=== PATIENT | female | born 1955 | race Caucasian/White ===

== ENCOUNTER 2021-02-23 12:15 | Outpatient (REF) | payer MEDICARE, SELFPAY ==
[2021-02-23 12:50] LABS: COVID-19 Test Negative (Negative)
== END 2021-02-23 12:16 | disposition home or self-care (01) ==
LOC: HO.LAB 12:15
PROVIDERS: Visit Provider Internal Medicine
DX: Z20.822 Contact with and (suspected) exposure to COVID-19 (principal)
CPT/HCPCS: 36415; 87635; C9803

== ENCOUNTER 2021-06-07 07:01 | Outpatient (REF) | payer MEDICARE, SELFPAY ==
[2021-06-07 11:30] LABS: Cholesterol 146 mg/dL; HDL Cholesterol 55 mg/dL; LDL Cholesterol Calculated 72 mg/dl; Triglycerides 98 mg/dL
== END 2021-06-07 07:02 | disposition home or self-care (01) ==
LOC: HO.HMGCLDS 07:01
PROVIDERS: PCP Internal Medicine; Visit Provider Internal Medicine Cardiovascular Disease
DX: E78.5 Hyperlipidemia, unspecified (principal)
CPT/HCPCS: 36415; 80061

== ENCOUNTER 2021-06-08 07:09 | Outpatient (REF) | payer MEDICARE, SELFPAY ==
--- NOTE | ~2021-06-08 | CT_ITS ---
EXAMINATION: CT CHEST WITHOUT CONTRAST CLINICAL INFORMATION: Pulmonary nodule COMPARISON: Previous CT scans most recent May 2020 TECHNIQUE: Multidetector volumetric CT imaging of the chest was done. Axial MIP volume rendering provided. Sagittal and coronal reformatted images were obtained. This CT examination was performed using dose optimization techniques as appropriate, variously including the following: *Automated exposure control *Adjustment of mA and/or kV according to patient size (this includes techniques or standardized protocols for targeted exams where dose is matched to indication/reason for exam; i.e. extremities or head) *Use of iterative reconstruction technique DLP: 116 mGy-cm FINDINGS: LUNGS: There is evidence of emphysema. There is mild biapical pleural parenchymal scarring. The small pulmonary nodules are stable. Largest pulmonary nodules are a 4 mm peripheral or subpleural left lower lobe nodule axial image 268 series 5 and 4 mm central right upper lobe nodule axial image 188 series 5. No new pulmonary nodule is seen. MEDIASTINUM: There is coronary artery calcification. Mediastinum is otherwise normal. PLEURA: There is no pleural effusion. No pleural mass or thickening. AXILLA: No lymphadenopathy. UPPER ABDOMEN: Unremarkable. OSSEOUS STRUCTURES: There are mild degenerative changes of the spine. CT/CT chest wo con IMPRESSION: Mild emphysema. Stable small pulmonary nodules.
== END 2021-06-08 07:10 | disposition home or self-care (01) ==
LOC: HO.CT 07:09
PROVIDERS: PCP Internal Medicine; Visit Provider Surgery
DX: R91.1 Solitary pulmonary nodule (principal)
CPT/HCPCS: 71250

== ENCOUNTER → 2021-06-30 09:00 | Outpatient (BNVA) | payer MEDICARE, SELFPAY | PROVIDERS: PCP Internal Medicine; Visit Provider Surgery | DX: R91.8 Other nonspecific abnormal finding of lung field (principal); Z79.899 Other long term (current) drug therapy; Z87.891 Personal history of nicotine dependence | CPT/HCPCS: 99212 ==

== ENCOUNTER → 2021-07-11 13:30 | Outpatient (BNVA) | payer MEDICARE, SELFPAY | PROVIDERS: PCP Internal Medicine; Referring Provider Internal Medicine; Visit Provider Internal Medicine Cardiovascular Disease | DX: I65.29 Occlusion and stenosis of unspecified carotid artery (principal); E78.5 Hyperlipidemia, unspecified | CPT/HCPCS: 93005; 99212 ==

== ENCOUNTER 2021-08-09 10:02 | Outpatient (REF) | payer MEDICARE, SELFPAY | END 2021-08-09 10:03 | disposition home or self-care (01) | LOC: HO.LAB 10:02 | PROVIDERS: PCP Internal Medicine; Visit Provider Internal Medicine | DX: Z20.822 Contact with and (suspected) exposure to COVID-19 (principal) | CPT/HCPCS: C9803; U0003; U0005 ==

== ENCOUNTER 2021-09-21 11:08 | Outpatient (REF) | payer MEDICARE, SELFPAY ==
[2021-09-21 12:01] LABS: COVID-19 Test Negative (Negative)
== END 2021-09-21 11:09 | disposition home or self-care (01) ==
LOC: HO.LAB 11:08
PROVIDERS: Visit Provider Internal Medicine
DX: Z20.822 Contact with and (suspected) exposure to COVID-19 (principal)
CPT/HCPCS: 36415; 87635; C9803

== ENCOUNTER 2022-01-15 14:30 | Outpatient (REF) | payer MEDICARE, SELFPAY | END 2022-01-15 14:31 | disposition home or self-care (01) | LOC: HO.LNP 14:30 | PROVIDERS: Visit Provider Physician Assistant | DX: L98.9 Disorder of the skin and subcutaneous tissue, unspecified (principal); L03.90 Cellulitis, unspecified | CPT/HCPCS: 87071; 87077; 87147; 87186; 87205 ==

== ENCOUNTER 2022-03-21 06:29 | Outpatient (REF) | payer MEDICARE, SELFPAY ==
[2022-03-21 11:40] LABS: MANUAL DIFF FLAG NO
[2022-03-21 11:46] LABS: Basophils Percent Auto 0.5 % (0-2); Eosinophils Absolute Auto 0.2 X10*3/uL (0.0-0.4); Eosinophils Percent Auto 2.8 % (0-4); Hemoglobin 13.7 g/dl (12.0-16.0); Imm Gran Abs Auto 0.01 X10*3/uL (0.00-0.03); Imm Gran Pct Auto 0.1 % (0.0-0.4); Lymphocytes Absolute Auto 2.2 X10*3/uL (1.2-4.9); Lymphocytes Percent Auto 27.2 % (20-40); Mean Corpuscular HGB Conc 31.1 g/dl (31.0-35.0); Mean Corpuscular Hemoglobin 27.4 pg (27.0-33.0); Mean Platelet Volume 10.8 fL (9.4-12.3); Monocytes Absolute Auto 0.9 X10*3/uL (0.1-1.2); Monocytes Percent Auto 11.4 % (2-11); Neutrophils Absolute Auto 4.6 x10*3/uL (2.0-8.3); Platelet Count 315 X10*3/uL (160-400); Red Cell Distribution Width 14.3 % (11.0-16.0)
[2022-03-21 12:17] LABS: Vitamin D 25-OH Total 30.7 ng/mL (>30)
[2022-03-21 12:28] LABS: Alanine Aminotransferase 56 U/L (0-31); Anion Gap 13 (12-20); Aspartate Amino Transferase 34 U/L (5-31); Blood Urea Nitrogen 15 mg/dL (9-16); C Reactive Protein 0.21 mg/dL (< or = 0.50); Calcium 9.4 mg/dL (8.4-10.2); Carbon Dioxide 25 mmol/L (22-29); Chloride 106 mmol/L (96-108); Cholesterol 168 mg/dL; Estimated Glomerular Filt Rate > 60; Glucose Fasting 103 mg/dL (60-99); HDL Cholesterol 53 mg/dL; LDL Cholesterol Calculated 77 mg/dl; Potassium 4.3 mmol/L (3.3-5.1); Sodium 140 mmol/L (135-145); Triglycerides 190 mg/dL
[2022-03-21 12:34] LABS: Erythrocyte Sedimentation Rate 19 MM/HR (0-20)
[2022-03-21 12:44] LABS: Rheumatoid Factor < 15.0 IU/mL (<15.0)
[2022-03-23 15:01] LABS: Anti Nuclear Antibody Screen NEGATIVE (NEGATIVE)
== END 2022-03-21 06:30 | disposition home or self-care (01) ==
LOC: HO.HMGCLDS 06:29
PROVIDERS: PCP Internal Medicine; Visit Provider Internal Medicine
DX: E78.5 Hyperlipidemia, unspecified (principal); I65.29 Occlusion and stenosis of unspecified carotid artery; M81.0 Age-related osteoporosis without current pathological fracture; R21 Rash and other nonspecific skin eruption
CPT/HCPCS: 36415; 80048; 80061; 82306; 84450; 84460; 85025; 85652; 86038; 86039; 86140; 86431

== ENCOUNTER 2023-07-17 07:27 | Outpatient (REF) | payer MEDICARE, SELFPAY ==
[2023-07-17 12:41] LABS: Alanine Aminotransferase 42 U/L (0-31); Albumin Level 4.1 g/dL (3.5-5.0); Alkaline Phosphatase 65 U/L (39-117); Anion Gap 14 (12-20); Aspartate Amino Transferase 37 U/L (5-31); Bilirubin Total 0.4 mg/dL (0.0-1.0); Blood Urea Nitrogen 14 mg/dL (9-16); Calcium 9.5 mg/dL (8.4-10.2); Carbon Dioxide 26 mmol/L (22-29); Chloride 107 mmol/L (96-108); Cholesterol 131 mg/dL (<200); Estimated Glomerular Filt Rate > 60; Glucose Fasting 108 mg/dL (60-99); HDL Cholesterol 44 mg/dL (>40); LDL Cholesterol Calculated 68 mg/dL (<100); Potassium 4.2 mmol/L (3.3-5.1); Sodium 143 mmol/L (135-145); Total Protein 7.2 g/dL (6.5-8.0); Triglycerides 97 mg/dL (<150)
[2023-07-17 13:03] LABS: Vitamin D 25-OH Total 51.6 ng/mL (>30)
== END 2023-07-17 07:28 | disposition home or self-care (01) ==
LOC: HO.HMGCLDS 07:27
PROVIDERS: PCP Internal Medicine; Visit Provider Internal Medicine
DX: I65.29 Occlusion and stenosis of unspecified carotid artery (principal); M81.0 Age-related osteoporosis without current pathological fracture; R73.01 Impaired fasting glucose; E78.5 Hyperlipidemia, unspecified
CPT/HCPCS: 36415; 80053; 80061; 82306

== ENCOUNTER 2023-07-19 10:41 | Outpatient (AMB) | payer MEDICARE, SELFPAY ==
--- NOTE | 2023-07-19 10:42 | MHC.OFFWIV ---
Intake Intake Visit Reasons: 6 month Follow up Hyperlipidemia Patient Tobacco Use Status: Former Tobacco user Quit Date: 1997 Allergies No Known Allergies [No Known Allergies*] Allergy (Verified 01/14/23 10:28) [facility] Medical History (Updated 06/26/23 @ 22:52 by Alysa Shane MD) Impaired fasting glucose Encounter for annual wellness visit (AWV) in Medicare patient Osteoporosis Hyperlipidemia Mild atherosclerosis of carotid artery Former smoker, stopped smoking in distant past Osteopenia (~2008) Pulmonary nodules Tubular adenoma of colon (~2004) Surgical History History of cataract surgery (~2018) History of endoscopy (~2018) History of colonoscopy (~2018) Family History Sister Substance use disorder Sister Substance use disorder Other Mental health disorder Social History Housing: House Alcohol intake: current Alcohol intake frequency: a few times a week Patient Tobacco Use Status: Former Tobacco user Quit Date: 1997 Years Smoked: 29 (onset 14, 2ppd x 29yrs, 50pyh, quit 1997) e-Cigarette/Vaping Use: Never Used Second Hand Smoke Exposure: No service: No Current occupational status: employed 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
--- NOTE | 2023-07-19 10:44 | A.OFFPC_ITS ---
Vital Signs 07/19/23 10:51 Height 5 ft 5 in Weight 170 lb BMI 28.3 BP 138/88 Blood Pressure Location Rt brachial Position Sitting Pulse 73 Pulse Source Pulse Oximeter Pulse Oximetry (%) 94 Oxygen Delivery Method Room Air Intake Visit Reasons: 6 month Follow up Hyperlipidemia Intake Note: pt is here for 6 month f/u hyperlipidemia Allergies No Known Allergies [No Known Allergies*] Allergy (Verified 07/19/23 11:08) Medication List - Last Reconciled 07/19/23 by Alysa Shane MD aspirin (Adult Aspirin Regimen) 81 mg PO DAILY atorvastatin 80 mg PO BEDTIME cholecalciferol (vitamin D3) 25 mcg PO DAILY coenzyme Q10 (Ultra CoQ10) 75 mg PO DAILY ezetimibe 10 mg PO DAILY ezetimibe (Zetia) 10 mg PO DAILY ibuprofen 800 mg PO Q12H PRN meloxicam 15 mg PO DAILY mometasone 0.1% 0 appl topical Tobacco use date assessed: 07/19/23 Fall risk assessment: No Falls in past year Last assessed Fall Risk: 07/19/23 Dental Screening Dental Screen Date: 07/19/23 Did you have a dental visit in the last 12 months?: Yes Did you have a dental problem in the last 6 months where you did not have access to dental care?: Yes Was dental information given to patient?: Patient has dentist HPI 6 month Follow up Hyperlipidemia HPI Details 68-year-old lady with osteoporosis, pred iabetes, and left carotid stenosis, here today for follow-up on her lipids, currently taking atorvastatin and ezetimibe. She has been feeling well, with no new complaints at present time. Her bone density scan done last year showed presence of osteoporosis in her lumbar spine, unchanged from previous. Test. She has been taking vitamin-D 3 supplements and takes calcium from dietary sources. Has not had any fractures. [facility] Medical History (Updated 07/22/23 @ 03:26 by Alysa Shane MD) Impaired fasting glucose Encounter for annual wellness visit (AWV) in Medicare patient Osteoporosis Hyperlipidemia Mild atherosclerosis of carotid artery Former smoker, stopped smoking in distant past Osteopenia (~2008) Pulmonary nodules Tubular adenoma of colon (~2004) Surgical History History of cataract surgery (~2019) History of endoscopy (~2019) History of colonoscopy (~2019) Family History Sister Substance use disorder Sister Substance use disorder Other Mental health disorder Social History Housing: House Alcohol intake: current Alcohol intake frequency: a few times a week Patient Tobacco Use Status: Former Tobacco user Quit Date: 1997 Years Smoked: 29 (onset 14, 2ppd x 29yrs, 50pyh, quit 1997) e-Cigarette/Vaping Use: Never Used Second Hand Smoke Exposure: No service: No 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 occupational status: employed 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 needs: No Hearing needs: No Vision needs: No Questionnaire Thrive Questionnaire Date Thrive assessed: 07/19/23 I am a: Patient What is your living situation today?: I have a steady place to live Within the past 12 months, did the food you bought not last and you didn't have the money to get more?: Never true Within the past 12 months, did you worry whether your food would run out before you got money to buy more?: Never true Do you have trouble paying for medicines?: No Do you have trouble getting transportation to medical appointments?: No Do you have trouble paying your heating and electricity bill?: No Do you have trouble taking care of your child, family member or friend?: No Do you have trouble with day-to-day activities such as bathing, preparing meals, shopping, managing finances, etc.?: No Are you currently unemployed and looking for a job?: No Are you interested in more education?: No Please select the resources that you would like help with: None Currently or been in a relationship where the following occur: no concerns reported Review of Systems Const Denies chills, Denies fever(s), Denies malaise and Denies weakness Eyes Reports blurry vision (Sees [facility] in [place]) ENT Reports no additional complaints and Denies dizziness Card Denies chest pain, Denies rapid heart rate, Denies irregular heart rhythm and Denies lightheadedness Resp Reports no additional complaints GI Reports no additional complaints Reports no additional complaints Musc Details: [facility] Reports arthralgias and Denies joint swelling Neuro Reports no additional complaints, Denies dizziness and Denies weakness Endo Reports no additional complaints David/Lymph Denies easy bleeding and Denies easy bruising Physical exam (Primary Care) Vital Signs: Last Vital Signs Pulse 73 07/19/23 10:51 BP 138/88 07/19/23 10:51 Pulse Ox 94 07/19/23 10:51 Oxygen Delivery Method Room Air 07/19/23 10:51 BMI result Body Mass Index 28.3 Tobacco/Smoking Status: Tobacco use Status Tobacco use date assessed 07/19/23 07/19/23 10:55 Patient Tobacco Use Status Former Tobacco user 07/19/23 10:55 e-Cigarette/Vaping Use Never Used 07/19/23 10:55 Thrive Assessment: Date of Thrive Assessment Date Thrive assessed 07/19/23 07/19/23 10:57 Currently or been in a relationship where the following occur: no concerns reported Const Other: Alert oriented x3, biztalk architect present General: comfortable and no acute distress Nutritional Appearance: overweight Orientation/consciousness: patient oriented x3 HENMT Head: Yes normocephalic and Yes atraumatic General nose exam: Normal external nose present Face and sinus: Yes face symmetric Mouth: Normal oral and palatal mucosa present and moist mucous membranes Neck Neck: Yes full ROM, Yes no lymphadenopathy and Yes supple Carotids: bruit (left) Resp Effort & Inspection: normal respiratory effort and able to speak in complete sentences Auscultation: clear to auscultation bilaterally Cardio Rate: regular rate Rhythm: regular rhythm Heart sounds: S1 normal heart sound present and S2 normal heart sound present GI Inspection: Yes normal to inspection Palpation (GI): Soft to palpation, nontender, no guarding and no masses General: Yes no CVA tenderness Back/Spine/Pelvis Back: no CVA tenderness and No back tenderness Skin Lesions: no lesions Rashes: no rashes Neuro General: patient oriented x3, moves all extremities, Normal light touch and pain sensation, no focal motor deficits and CN's II-XI intact bilaterally Results Reviewed Results Reviewed: ENTERED: 07/17/23-746 OTHR SHIPMAN: ORDERED: CMP Fast, Lipid Panel, Vitamin D 25-OH Test Result Flag Reference Site Sodium 143 135-145 mmol/L Potassium 4.2 3.3-5.1 mmol/L CL 107 96-108 mmol/L CO2 26 22-29 mmol/L Gap 14 12-20 BUN 14 9-16 mg/dL Creat 0.68 0.5-1.4 mg/dL EGFR > 60 NOTE: For -[place]aman[place] individuals, multiply the result by 1.210. Chronic Kidney Disease: Estimated GFR < 60 mL/min/1.73m2 Severe Kidney Disease: Estimated GFR < 15 mL/min/1.73m2 FBS 108 H 60-99 mg/dL A fasting glucose from 100-125 mg/dl is considered impaired (pre-diabetes). CA 9.5 8.4-10.2 mg/dL Total Bili 0.4 0.0-1.0 mg/dL AST (GOT) 37 H 5-31 U/L ALT (GPT) 42 H 0-31 U/L Protein, Total 7.2 6.5-8.0 g/dL Alb 4.1 3.5-5.0 g/dL Triglyceride 97 <150 mg/dL Desirable Triglyceride: less than 150 mg/dL Borderline High Triglyceride 150-199 mg/dL High Triglyceride: 200-499 mg/dL Very High Triglyceride: greater than or equal to 5OO mg/dL Cholesterol 131 <200 mg/dL Desirable Cholesterol: less than 200 mg/dL Borderline High Cholesterol: 200-239 mg/dL High Cholesterol: greater than 239 mg/dL LDL Calculated 68 <100 mg/dL Desirable LDL: less than 100 mg/dL Near Optimal/Above Optimal LDL: 110-129 mg/dL Borderline High LDL: 130-159 mg/dL High LDL: 160-189 mg/dL Very High LDL: greater than or equal to 190 mg/dL HDL 44 >40 mg/dL Desirable HDL: greater than 40 mg/dL Note: This HDL assay may give artificially low results in patients with liver disease. Alk Phos 65 39-117 U/L Vit D 25-OH Tot 51.6 >30 ng/mL Health Based Reference Values* < 20 ng/mL Deficient 20-30 ng/mL Insufficient > 30 ng/mL Sufficient Assessment and Plan Assessment & Plan (1) Impaired fasting glucose: Code(s): R73.01 - Impaired fasting glucose Plan: Your fasting blood sugars elevated above 100 mg/dL. Impaired glucose metabolism O2 at risk for developing diabetes mellitus type 2, as well as heart attack and stroke later on. Lifestyle changes at just weight loss, healthy eating habits, and regular exercise are important, and can prevent the progression to diabetes (2) Hyperlipidemia: Code(s): E78.5 - Hyperlipidemia, unspecified Plan: Reviewed recent fasting lipid profile with patient with levels within normal limits . Continue with atorvastatin and ezetimibe , in addition to adherence to low-cholesterol diet and regular exercise, at least 30 minutes 3 to 4 times a week. Advised patient to make healthy food choices, eat more fruits, vegetables, whole grains, wild caught fish and low-fat dairy. Limit amount of meat and fried or fatty food products, as well as processed foods and fast foods. Follow-up scheduled with repeat fasting lipid panel in 6 months. (3) Osteoporosis: Code(s): M81.0 - Age-related osteoporosis without current pathological fracture Plan: Reviewed last bone density scan with patient and daughter, which showed presence of osteoporosis in lumbar spine, with no significant change from previous test done. Discuss treatment options with patient which may include alendronate, Prolia, raloxifene, would like to discuss this more with her arthritis specialist and decide which course of treatment to take (4) Mild atherosclerosis of carotid artery: Code(s): I65.29 - Occlusion and stenosis of unspecified carotid artery Qualifiers: Laterality: left Qualified Code(s): I65.22 - Occlusion and stenosis of left carotid artery Plan: Continue aspirin 81 mg daily, stressed importance of getting cholesterol, serum glucose and blood pressure well controlled. Has an appointment for follow-up with Dr. Gill next week Orders: Orders Lipid Panel 01/10/24 E78.5 - Hyperlipidemia, unspecified, I65.29 - Occlusion and stenosis of unspecified carotid artery, M81.0 - Age-related osteoporosis without current pathological fracture, R73.01 - Impaired fasting glucose Glucose Fasting 01/10/24 E78.5 - Hyperlipidemia, unspecified, I65.29 - Occlusion and stenosis of unspecified carotid artery, M81.0 - Age-related osteoporosis without current pathological fracture, R73.01 - Impaired fasting glucose Aspartate Amino Transferase 01/10/24 E78.5 - Hyperlipidemia, unspecified, I65.29 - Occlusion and stenosis of unspecified carotid artery, M81.0 - Age-related osteoporosis without current pathological fracture, R73.01 - Impaired fasting glucose Alanine Aminotransferase 01/10/24 E78.5 - Hyperlipidemia, unspecified, I65.29 - Occlusion and stenosis of unspecified carotid artery, M81.0 - Age-related osteoporosis without current pathological fracture, R73.01 - Impaired fasting glucose Hemoglobin A1c 01/10/24 E78.5 - Hyperlipidemia, unspecified, I65.29 - Occlusion and stenosis of unspecified carotid artery, M81.0 - Age-related osteoporosis without current pathological fracture, R73.01 - Impaired fasting glucose Vitamin D 25-OH Total 01/10/24 E78.5 - Hyperlipidemia, unspecified, I65.29 - Occlusion and stenosis of unspecified carotid artery, M81.0 - Age-related osteoporosis without current pathological fracture, R73.01 - Impaired fasting glucose Coding Level of Care Code Est Pt Level 4 (33443) Diagnoses Impaired fasting glucose R73.01 Hyperlipidemia E78.5 Osteoporosis M81.0 Mild atherosclerosis of left carotid artery I65.22 Laterality: left
[2023-07-19 10:51] VITALS: BP 138/88; PULSE 73; O2SAT 94; BMI 28.3
== END 2023-07-19 11:35 | disposition home or self-care (01) ==
PROVIDERS: Visit Provider Internal Medicine
DX: R73.01 Impaired fasting glucose (principal); E78.5 Hyperlipidemia, unspecified; M81.0 Age-related osteoporosis without current pathological fracture; I65.22 Occlusion and stenosis of left carotid artery
CPT/HCPCS: 99214

== ENCOUNTER 2023-07-22 13:05 | Outpatient (AMB) | payer MEDICARE, SELFPAY ==
--- NOTE | 2023-07-22 13:10 | MHC.OFFVIS ---
Intake Vital Signs 07/22/23 13:11 Height 5 ft 5 in Weight 167 lb 8.821 oz BMI 27.9 BP 120/80 Blood Pressure Location Lt brachial Position Sitting Pulse 93 Intake Visit Reasons: 2 year follow up Intake Note: 2 year follow-up with ekg feeling good Allergies No Known Allergies [No Known Allergies*] Allergy (Verified 07/19/23 11:08) Medication List - Last Reconciled 07/22/23 by Rock Gill MD aspirin (Adult Aspirin Regimen) 81 mg PO DAILY atorvastatin 80 mg PO BEDTIME cholecalciferol (vitamin D3) 25 mcg PO DAILY coenzyme Q10 (Ultra CoQ10) 75 mg PO DAILY ezetimibe 10 mg PO DAILY ezetimibe (Zetia) 10 mg PO DAILY meloxicam 15 mg PO DAILY mometasone 0.1% 0 appl topical HPI HPI Comments History of Present Illness Details Gabriella comes for follow-up. When she is out in the mid whether she notices some shortness of breath. She denies any wheezing. She also occasionally notice shortness of breath when she is bending over to tie her shoelaces. She denies any orthopnea, PND, leg edema. Denies any exertional chest pain. No lightheadedness, syncope. No neurologic symptoms. Takes all her medications. Last LDL was well optimized at 68. She says that she has gained some weight. [facility] Medical History Impaired fasting glucose Encounter for annual wellness visit (AWV) in Medicare patient Osteoporosis Hyperlipidemia Mild atherosclerosis of carotid artery Former smoker, stopped smoking in distant past Osteopenia (~2008) Pulmonary nodules Tubular adenoma of colon (~2004) Surgical History History of cataract surgery (~2018) History of endoscopy (~2018) History of colonoscopy (~2018) Family History Sister Substance use disorder Sister Substance use disorder Other Mental health disorder Social History Housing: House Alcohol intake: current Alcohol intake frequency: a few times a week Patient Tobacco Use Status: Former Tobacco user Quit Date: 1997 Years Smoked: 29 (onset 14, 2ppd x 29yrs, 50pyh, quit 1997) e-Cigarette/Vaping Use: Never Used Second Hand Smoke Exposure: No service: No 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 occupational status: employed 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 needs: No Hearing needs: No Vision needs: No Review of Systems Const Denies chills, Denies fatigue, Denies fever(s), Denies frequent falls, Denies weakness, Denies weight gain and Denies weight loss ENT Denies dizziness Card Denies chest pain, Denies leg edema, Denies lightheadedness, Denies palpitations, Denies dyspnea, Denies dyspnea on exertion, Denies orthopnea and Denies other (loss of consciousness) Resp Denies cough, Denies dyspnea and Denies dyspnea on exertion GI Denies hematochezia and Denies change in stool character Musc Denies abnormal gait, Denies muscle weakness, Denies numbness, Denies radiating pain into limb and Denies tingling Neuro Denies abnormal gait, Denies dizziness, Denies frequent falls, Denies numbness, Denies tingling and Denies weakness Endo Denies fatigue and Denies palpitations Physical Exam Vital Signs: Last Vital Signs Pulse 93 07/22/23 13:11 BP 120/80 07/22/23 13:11 BMI result Body Mass Index 27.9 Const General: cooperative, comfortable, no acute distress, alert and awake Nutritional Appearance: average body habitus Orientation/consciousness: patient oriented x3 Limitations: no limitations Neck Neck: Yes trachea midline, Yes supple and Yes no JVD Carotids: bruit on the left Resp Effort & Inspection: normal respiratory effort Auscultation: clear to auscultation bilaterally Cardio Jugular venous distension: no JVD Palpation: normal PMI Rate: regular rate Rhythm: regular rhythm Heart sounds: S1 normal heart sound present, S2 normal heart sound present, no click, no gallops, no murmurs and no rubs Bruits: carotid bruit on the left GI Auscultation: normal bowel sounds Skin General skin exam: no rashes or lesions noted Neuro General: patient oriented x3 and no focal motor deficits Extrem General: Yes no clubbing, cyanosis or edema Office Procedures EKG Details: EKG shows normal sinus rhythm with normal EKG [id number], Complete Assessment & Plan Assessment & Plan (1) Mild atherosclerosis of carotid artery: Code(s): I65.29 - Occlusion and stenosis of unspecified carotid artery Qualifiers: Laterality: left Qualified Code(s): I65.22 - Occlusion and stenosis of left carotid artery Plan: Patient with risk factors of mild carotid disease and hyperlipidemia with family history. He has prior history of smoking which is currently not doing. Continue low-dose aspirin therapy. Continue high-intensity statin therapy with target goal LDL less than 70 mg/dL. Her recent increase in symptoms shortness of breath especially with weather is most suggestive of pulmonary parenchymal disease and have recommended PFTs if she continues to have symptoms. This will be pursue through office. Also advised to participate in weight loss program and regular physical activity. Blood pressure is currently well optimized. Noted mild abnormality in LFTs most likely due to fatty liver disease due to weight gain. Advised weight loss program. Follow up in the clinic in 2 years time, sooner p.r.n.. Thank you for allowing me to partake in her care Coding Level of Care Code Est Pt Level 3 (09393) Diagnoses Mild atherosclerosis of left carotid artery I65.22 Laterality: left CPT Codes EKG - CPT: 10464-[id number], Complete ([id number])
[2023-07-22 13:11] VITALS: BP 120/80; PULSE 93; BMI 27.9
== END 2023-07-22 13:46 | disposition home or self-care (01) ==
PROVIDERS: PCP Internal Medicine; Referring Provider Internal Medicine; Visit Provider Internal Medicine Cardiovascular Disease
DX: I65.22 Occlusion and stenosis of left carotid artery (principal)
CPT/HCPCS: 93010; 99213

== ENCOUNTER → 2023-07-22 13:05 | Outpatient (BNVA) | payer MEDICARE, SELFPAY | PROVIDERS: PCP Internal Medicine; Referring Provider Internal Medicine; Visit Provider Internal Medicine Cardiovascular Disease | DX: I65.22 Occlusion and stenosis of left carotid artery (principal); E78.5 Hyperlipidemia, unspecified; Z79.82 Long term (current) use of aspirin; Z79.899 Other long term (current) drug therapy | CPT/HCPCS: 93005; 99212 ==

== ENCOUNTER 2024-01-16 08:25 | Outpatient (AMB) | payer MEDICARE, SELFPAY ==
[2024-01-16 08:41] VITALS: BP 140/80; PULSE 71; O2SAT 95; BMI 28.3
--- NOTE | 2024-01-16 08:41 | AM.OFFVISMDC ---
Intake Vital Signs 01/16/24 08:41 Height 5 ft 5 in Weight 170 lb BMI 28.3 BP 140/80 H Blood Pressure Location Rt brachial Position Sitting Pulse 71 Pulse Source Pulse Oximeter Pulse Oximetry (%) 95 Oxygen Delivery Method Room Air Intake Visit Reasons: SWV G0439 Intake Note: ? Allergies No Known Allergies [No Known Allergies*] Allergy (Verified 01/16/24 08:58) Medication List - Last Reconciled 01/16/24 by Alysa Shane MD aspirin (Adult Aspirin Regimen) 81 mg PO DAILY atorvastatin 80 mg PO BEDTIME cholecalciferol (vitamin D3) 25 mcg PO DAILY coenzyme Q10 (Ultra CoQ10) 75 mg PO DAILY ezetimibe 10 mg PO DAILY meloxicam 15 mg PO DAILY mometasone 0.1% 0 appl topical HPI SWV G0439 HPI Details SWV ? 68 year old lady, here today for her subsequent annual wellness visit.? She is hyperlipidemia currently on pravastatin 80 mg daily and ezetimibe 10 mg daily, with last fasting lipid panel done 07/17/2023 within normal limits. She had a fasting glucose done same time which showed a fasting glucose in the prediabetic range at 108 mg/dL. She is up-to-date with her screening mammogram done at [facility] last 12/23/2023 with negative findings. Up-to-date with her screening colonoscopy done by Dr. Loredo 09/16/2019 with removal of a tubular adenoma, to be rechecked again this year, patient to schedule appointment with Dr. Loredo for follow-up. 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 Broussard at [facility]. She is up-to-date with her COVID vaccination including booster, flu shot, pneumonia vaccination, Shingrix and Tdap. ? Medical / Social History Reviewed? Past Medical History ?Yes . ? Crow of Care / Care Team list updated ?Yes . ? Surgical/Hospitalization History ?Yes . ? Current Medications (including OTC and supplements) ?Yes . ? Family History ?Yes . ? Tobacco Control form ?Yes . ? AUDIT-C (Alcohol use) form ?Yes . ? Illicit drug use in Social History ?Yes . ? Current diagnosis of depression? ?No ? Appropriate PHQ2/PHQ9 completed ?Yes . ? Data entered by ?Automobile Rental Clerk and reviewed by provider ? Fall Risk ? Fall History? Have you had any falls with injury in the past year? ?No . ? Have you had two or more falls in the past year? ?No . ? Fall Risk Assessment: ?No falls in the past year . ? HRA filled out by the patient, reviewed by Provider and scanned. ?? SWV ? Balance? Romberg ?Yes . ? Tandem walk ?Yes . ? Walk and Turn ?Yes . ? Rise from sit to stand ?Yes . ?Vision? Corrective lens ?Yes ? Vision screen -sees Dr. Hulseberg?Hearing? Whisper test ?pass . ?Written Plan?Completed. See Patient Documents.? [facility] Medical History Impaired fasting glucose Encounter for annual wellness visit (AWV) in Medicare patient Osteoporosis Hyperlipidemia Mild atherosclerosis of carotid artery Former smoker, stopped smoking in distant past Osteopenia (~2008) Pulmonary nodules Tubular adenoma of colon (~2004) Surgical History History of cataract surgery (~2018) History of endoscopy (~2018) History of colonoscopy (~2018) Family History Sister Substance use disorder Sister Substance use disorder Other Mental health disorder Social History Housing: House Alcohol intake: current Alcohol intake frequency: a few times a week Patient Tobacco Use Status: Former Tobacco user Quit Date: 1997 Years Smoked: 27 (onset 14, 2ppd x 29yrs, 50pyh, quit 1997) e-Cigarette/Vaping Use: Never Used Second Hand Smoke Exposure: No service: No Current occupational status: employed 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 needs: No Hearing needs: No Vision needs: No Questionnaire Medicare Wellness Checkup [age] What gender do you identify with?: female During the past 4 weeks, how much have you been bothered by emotional problems such as feeling anxious, depressed, irritable, sad or downhearted, and blue?: slightly During the past 4 weeks, has your physical & emotional health limited your social activities with family, friends, neighbors, or groups?: slightly During the past 4 weeks, how much bodily pain have you generally had?: mild pain During the past 4 weeks, was someone available to help you if you needed & wanted help?: yes, as much as I wanted During the past 4 weeks, what was the hardest physical activity you could do for at least 2 minutes?: moderate Can you get to places out of walking distance without help? (For eg., can you travel alone on buses, taxis or drive your car?): Yes Can you go shopping for groceries or clothes without someone's help?: Yes Can you prepare your own meals?: Yes Can you do your housework without help?: Yes Because of any health problems, do you need the help of another person with your personal care needs such as eating, bathing, dressing or getting around the house?: Yes Can you handle your own money without help?: Yes During the past 4 weeks, how would you rate your health in general?: good During the past 4 weeks how have things been going for you?: pretty well Are you having difficulties driving your car?: no Do you always fasten your seat belt when you are in a car?: yes, usually During past 4 weeks, have you been bothered by the following: never: Sexual problems?, Teeth or denture problems? and Problems using the telephone?, seldom: Falling or dizzy when standing up and Trouble eating well? and often: Tiredness or fatigue? Have you fallen 2 or more times in the past year?: No Are you afraid of falling?: Yes Are you a smoker?: no During the past 4 weeks, how many drinks of wine, beer, or other alcoholic beverages did you have?: 6-9 drinks per week Do you exercise for about 20 minutes 3 or more times a week?: no, I usually do not exercise this much Have you been given information to help with the following?: yes: Keeping track of your medications? and no: Hazards in your house that might hurt you? How often do you have trouble taking medicines the way you have been told to take them?: I always take medicine as prescribed How confident are you that you can control & manage most of your health problems?: very confident What is your race?: White Mini Mental State Exam (MMSE) Orientation What is the (year) (season) (date) (day) (month)?: year (2023), season (winter), date ([id number]), day () and month (january) Where are we (state) (county) (town or city) (hospital) (floor)?: state ([place]), county ([place]), town or city ([place]) and hospital/clinic ([facility] Score Score: 9 Activity of Daily Living Bathing - sponge bath, tub bath or shower: receives no assistance (gets in/out by self, if usual bathing means Dressing - getting clothes from closets & drawers, including inner/outer garments & fasteners.: gets clothes & gets completely dressed without help Toileting - going to the 'toilet room' for urine/bowel elimination & cleaning self/arranging clothes: goes to toilet room, cleans self, arranges clothes without help Transfer: moves in & out of bed and chair without help (may use support object) Continence: has occasional 'accidents' Feeding: feeds self without help Total Score: 0 Information obtained from: patient Using telephone: independent Traveling: independent Shopping: independent Preparing meals: independent Housework: independent Taking medicine: independent Managing money: independent PHQ-9 Over the last 2 weeks, how often have you been bothered by any of the following problems? 1. Little interest or pleasure in doing things: not at all 2. Feeling down, depressed, or hopeless: not at all 3. Trouble falling or staying asleep, or sleeping too much: not at all 4. Feeling tired or having little energy: several days 5. Poor appetite or overeating: not at all 6. Feeling bad about yourself - or that you are a failure or have let yourself or your family down: not at all 7. Trouble concentrating on things, such as reading the newspaper or watching television: not at all 8. Moving or speaking so slowly that other people could have noticed. Or the opposite - being so fidgety or restless that you have been moving around a lot more than usual: not at all 9. Thoughts that you would be better off or of hurting yourself in some way: not at all Total score: 1 Depression Screening Interpretation: Negative Depression Screening Done: Yes 72354 - PHQ-9 Billing: Yes Source: Developed by Drs. Boston Dan, Carole Flower, Tesfaye Krishnan and colleagues, with an educational fabio from [employer]. Physical Exam Vital Signs: Last Vital Signs Pulse 71 01/16/24 08:41 BP 140/80 H 01/16/24 08:41 Pulse Ox 95 01/16/24 08:41 Oxygen Delivery Method Room Air 01/16/24 08:41 BMI result Body Mass Index 28.3 Assessment & Plan Assessment & Plan (1) Encounter for subsequent annual wellness visit (AWV) in Medicare patient: Code(s): Z00.00 - Encounter for general adult medical examination without abnormal findings Plan: Medical wellness checklist discussed with patient reviewed and updated. Copy given. 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 , unsure whether she wants to start any treatment at this time as she feels well, has been exercising regularly takes adequate calcium from her diet and takes regular vitamin-D supplements with levels within normal limits (3) Impaired fasting glucose: Code(s): R73.01 - Impaired fasting glucose Plan: Reinforced importance of following a healthy diet, low in carbs, and get regular exercise to prevent progression to diabetes mellitus (4) Hyperlipidemia: Code(s): E78.5 - Hyperlipidemia, unspecified Qualifiers: Hyperlipidemia type: pure hypercholesterolemia Qualified Code(s): E78.00 - Pure hypercholesterolemia, unspecified Plan: Currently on atorvastatin 80 mg at diet and ezetimibe 10 mg daily (5) Mild atherosclerosis of carotid artery: Code(s): I65.29 - Occlusion and stenosis of unspecified carotid artery Qualifiers: Laterality: left Qualified Code(s): I65.22 - Occlusion and stenosis of left carotid artery Plan: Stressed importance of getting hypertension, cholesterol and diabetes well controlled Orders: Orders XR DEXA axial skeleton 01/16/24 M81.0 - Age-related osteoporosis without current pathological fracture Quality Reporting (2019) Depression/Bipolar (159/160/161/177) PHQ-9: Total score: 1 Coding Level of Care Code Medicare Subsequent (G0439) Diagnoses Encounter for subsequent annual wellness visit (AWV) in Medicare patient Z00.00 Age-related osteoporosis without current pathological fracture M81.0 Osteoporosis type: age-related Presence of current pathological fracture: without current pathological fracture Impaired fasting glucose R73.01 Pure hypercholesterolemia E78.00 Hyperlipidemia type: pure hypercholesterolemia Mild atherosclerosis of left carotid artery I65.22 Laterality: left CPT Codes Advance Care Planning - Advance Care Planning discussion: On file, no changes ([id number]) Advance Care Planning - Time spent: 1-15 minutes, on File ([id number]) Advance Care Planning Advance Care Planning discussion: On file, no changes Date of discussion: 01/16/24 Who was present: Patient Forms completed: Health Care Proxy and MOLST Time spent: 1-15 minutes, on File Actual minutes spent: 15
== END 2024-01-16 09:31 | disposition home or self-care (01) ==
PROVIDERS: Visit Provider Internal Medicine
DX: Z00.00 Encounter for general adult medical examination without abnormal findings (principal); M81.0 Age-related osteoporosis without current pathological fracture; R73.01 Impaired fasting glucose; E78.00 Pure hypercholesterolemia, unspecified; I65.22 Occlusion and stenosis of left carotid artery
CPT/HCPCS: 1123F; G0439

== ENCOUNTER 2024-03-09 08:18 | Outpatient (REF) | payer MEDICARE, SELFPAY ==
[2024-03-09 10:44] LABS: Estimated Average Glucose 123 mg/dL; Hemoglobin A1c % 5.9 % (<6.0)
[2024-03-09 11:49] LABS: Alanine Aminotransferase 54 U/L (0-31); Aspartate Amino Transferase 37 U/L (5-31); Cholesterol 132 mg/dL (<200); Glucose Fasting 106 mg/dL (60-99); HDL Cholesterol 49 mg/dL (>40); LDL Cholesterol Calculated 61 mg/dL (<100); Triglycerides 110 mg/dL (<150); Vitamin D 25-OH Total 42.3 ng/mL (>30)
== END 2024-03-09 08:19 | disposition home or self-care (01) ==
LOC: HO.HMGCLDS 08:18
PROVIDERS: PCP Internal Medicine; Visit Provider Internal Medicine
DX: R73.01 Impaired fasting glucose (principal); E78.5 Hyperlipidemia, unspecified; I65.29 Occlusion and stenosis of unspecified carotid artery; M81.0 Age-related osteoporosis without current pathological fracture
CPT/HCPCS: 36415; 80061; 82306; 82947; 83036; 84450; 84460

== ENCOUNTER 2024-08-05 11:38 | Outpatient (AMB) | payer MEDICARE, SELFPAY ==
--- NOTE | 2024-08-05 12:18 | A.OFFPC_ITS ---
Vital Signs 08/05/24 12:20 Height 5 ft 5 in Weight 175 lb 8 oz BMI 29.2 BP 162/86 H Blood Pressure Location Rt brachial Position Sitting Pulse 76 Pulse Source Pulse Oximeter Pulse Oximetry (%) 95 Oxygen Delivery Method Room Air Intake Visit Reasons: 6M F/U Allergies No Known Allergies [No Known Allergies*] Allergy (Verified 08/05/24 12:42) Medication List - Last Reconciled 08/05/24 by Alysa Shane MD aspirin (Adult Aspirin Regimen) 81 mg PO DAILY atorvastatin 80 mg PO BEDTIME cholecalciferol (vitamin D3) 25 mcg PO DAILY coenzyme Q10 (Ultra CoQ10) 75 mg PO DAILY ezetimibe 10 mg PO DAILY meloxicam 15 mg PO DAILY mometasone 0.1% 0 appl topical Tobacco use date assessed: 08/05/24 Fall risk assessment: No Falls in past year Last assessed Fall Risk: 08/05/24 Dental Screening Dental Screen Date: 08/05/24 Did you have a dental visit in the last 12 months?: Yes Did you have a dental problem in the last 6 months where you did not have access to dental care?: No Was dental information given to patient?: Patient has dentist HPI 6M F/U HPI Details 69-year-old lady with attention, hyperlipidemia, prediabetes, here today for follow-up. Her blood pressure has never been at goal . . 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 Denies any chest pain, no headache. However she has been complaining of having severe frequent hot flashes when she feels warm all the time and would break out in sweat a different times of the day. Has been postmenopausal now for several years. She also has beginning osteoporosis in lumbar spine as noted on bone density done in 2021. No history of any fractures. FOR[facility]LY [facility], [facility] Medical History (Updated 08/05/24 @ 13:11 by Alysa Shane MD) Essential hypertension Postmenopausal syndrome Impaired fasting glucose Encounter for annual wellness visit (AWV) in Medicare patient Osteoporosis Hyperlipidemia Mild atherosclerosis of carotid artery Former smoker, stopped smoking in distant past Osteopenia (~2008) Pulmonary nodules Tubular adenoma of colon (~2004) Surgical History History of cataract surgery (~2019) History of endoscopy (~2019) History of colonoscopy (~2019) Family History Sister Substance use disorder Sister Substance use disorder Other Mental health disorder Social History Housing: House Alcohol intake: current Alcohol intake frequency: a few times a week Patient Tobacco Use Status: Former Tobacco user Years Smoked: 27 (onset 14, 2ppd x 29yrs, 50pyh, quit 1997) e-Cigarette/Vaping Use: Never Used Second Hand Smoke Exposure: No service: No Current occupational status: employed 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 1. Little interest or pleasure in doing things: not at all 2. Feeling down, depressed, or hopeless: not at all 3. Trouble falling or staying asleep, or sleeping too much: not at all 4. Feeling tired or having little energy: more than half the days 5. Poor appetite or overeating: not at all 6. Feeling bad about yourself - or that you are a failure or have let yourself or your family down: not at all 7. Trouble concentrating on things, such as reading the newspaper or watching television: not at all 8. Moving or speaking so slowly that other people could have noticed. Or the opposite - being so fidgety or restless that you have been moving around a lot more than usual: not at all 9. Thoughts that you would be better off or of hurting yourself in some way: not at all Total score: 2 Depression Screening Interpretation: Negative Depression Screening Done: Yes 64944 - PHQ-9 Billing: Yes Source: Developed by Drs. Boston Dan, Carole Flower, Tesfaye Krishnan and colleagues, with an educational fabio from [employer]. Thrive Questionnaire Date Thrive assessed: 08/05/24 I am a: Patient What is your living situation today?: I have a steady place to live Within the past 12 months, did the food you bought not last and you didn't have the money to get more?: Never true Within the past 12 months, did you worry whether your food would run out before you got money to buy more?: Never true Do you have trouble paying for medicines?: No Do you have trouble getting transportation to medical appointments?: No Do you have trouble paying your heating and electricity bill?: No Do you have trouble taking care of your child, family member or friend?: No Do you have trouble with day-to-day activities such as bathing, preparing meals, shopping, managing finances, etc.?: No Are you interested in more education?: No Please select the resources that you would like help with: None Currently or been in a relationship where the following occur: No concerns reported THRIVE Score: 0 AUDIT C Alcohol Use Questionnaire (AUDIT-C) 1. How often do you have a drink containing alcohol?: 2-3 times a week 2. How many drinks containing alcohol do you have on a typical day when you are drinking?: 3 or 4 3. How often do you have six or more drinks on one occasion?: Less than monthly Total Score: 5 Score Reviewed/Action Taken: Yes REJI-7 AMB Questionnaire REJI-7 Date REJI - 7 assessed: 08/05/24 Feeling nervous, anxious, or on edge: 0 = Not at all Not being able to stop or control worryin = Not at all Worrying too much about different things: 0 = Not at all Trouble relaxin = Not at all Being so restless that it is hard to sit still: 0 = Not at all Becoming easily annoyed or irritable: 0 = Not at all Feeling afraid as if something awful might happen: 0 = Not at all Total REJI-7 score (0-4 normal; 5-9 mild; 10-14 moderate; 15-21 severe): 0 Source: Developed by Drs. Boston Dan, Carole Flower, Tesfaye Krishnan and colleagues, with an educational fabio from [employer]. REJI-7 Assessment Billing REJI-7 Assessment Tool: REJI-7 Assessment 21353 Review of Systems Const Reports as per HPI, Denies chills, Denies fatigue, Denies fever(s), Denies frequent falls, Denies weakness and Reports weight gain ENT Denies dizziness Card Denies chest pain, Denies leg edema, Denies lightheadedness, Denies palpitations, Denies dyspnea, Denies dyspnea on exertion and Denies orthopnea Resp Denies cough, Denies dyspnea and Denies dyspnea on exertion GI Denies hematochezia and Denies change in stool character Musc Denies abnormal gait, Denies muscle weakness, Denies numbness, Denies radiating pain into limb and Denies tingling Neuro Denies abnormal gait, Denies dizziness, Denies frequent falls, Denies numbness, Denies tingling and Denies weakness Psych Reports no additional complaints Endo Denies fatigue and Denies palpitations Aller/Immun Reports no additional complaints Physical exam (Primary Care) Vital Signs: Last Vital Signs Pulse 76 08/05/24 12:20 BP 162/86 H 08/05/24 12:20 Pulse Ox 95 08/05/24 12:20 Oxygen Delivery Method Room Air 08/05/24 12:20 BMI result Body Mass Index 29.2 Tobacco/Smoking Status: Tobacco use Status Tobacco use date assessed 08/05/24 08/05/24 12:20 Patient Tobacco Use Status Former Tobacco user 08/05/24 12:20 e-Cigarette/Vaping Use Never Used 08/05/24 12:20 PHQ-9: PHQ-9 Score PHQ-9: Total score 2 08/05/24 12:47 Depression Screening Interpretation: Negative Thrive Assessment: Date of Thrive Assessment Date Thrive assessed 08/05/24 08/05/24 12:23 Currently or been in a relationship where the following occur: No concerns reported Const General: comfortable and no acute distress Nutritional Appearance: overweight Orientation/consciousness: patient oriented x3 HENMT Head: Yes normocephalic General nose exam: Normal external nose present Face and sinus: Yes face symmetric Mouth: Normal oral and palatal mucosa present and moist mucous membranes Neck Neck: Yes full ROM, Yes no lymphadenopathy and Yes supple Carotids: bruit (left) Resp Effort & Inspection: normal respiratory effort and able to speak in complete sentences Auscultation: clear to auscultation bilaterally Cardio Rate: regular rate Rhythm: regular rhythm Heart sounds: S1 normal heart sound present and S2 normal heart sound present GI Inspection: Yes normal to inspection Palpation (GI): Soft to palpation, nontender, no guarding and no masses General: Yes no CVA tenderness Back/Spine/Pelvis Back: no CVA tenderness and No back tenderness Neuro General: patient oriented x3, moves all extremities, Normal light touch and pain sensation, no focal motor deficits and CN's II-XI intact bilaterally Extrem General: Yes full ROM, Yes no clubbing, cyanosis or edema, Yes no pedal edema, Yes no calf tenderness and Yes normal gait Results Reviewed Results Reviewed: Laboratory Tests 03/09/24 08:23 Fasting Glucose 106 H Estimat Average Glucose 123 Hemoglobin A1c % 5.9 Name: Gabriella Pedroza Age/Sex: 68/F : 1955 Unit#: [id number] Attend Dr: Alysa Shane MD Re03/09/24 Status: DEP REF Location: [facility] Disch: SPEC : [id number] FRANKY: 03/09/24 STATUS: COMP REQ : [id number] RECD: 03/09/[address]: Alysa Shane MD COMP: 03/09/24 ENTERED: 03/09/[address] [facility] [address]: ORDERED: Glu Fasting, AST, ALT, Lipid Panel, Vitamin D 25-OH Test Result Flag Reference FBS 106 H 60-99 mg/dL A fasting glucose from 100-125 mg/dl is considered impaired (pre-diabetes). AST (GOT) 37 H 5-31 U/L ALT (GPT) 54 H 0-31 U/L Triglyceride 110 <150 mg/dL Desirable Triglyceride: less than 150 mg/dL Borderline High Triglyceride 150-199 mg/dL High Triglyceride: 200-499 mg/dL Very High Triglyceride: greater than or equal to 5OO mg/dL Cholesterol 132 <200 mg/dL Desirable Cholesterol: less than 200 mg/dL Borderline High Cholesterol: 200-239 mg/dL High Cholesterol: greater than 239 mg/dL LDL Calculated 61 <100 mg/dL Desirable LDL: less than 100 mg/dL Near Optimal/Above Optimal LDL: 110-129 mg/dL Borderline High LDL: 130-159 mg/dL High LDL: 160-189 mg/dL Very High LDL: greater than or equal to 190 mg/dL HDL 49 >40 mg/dL Desirable HDL: greater than 40 mg/dL Note: This HDL assay may give artificially low results in patients with liver disease. Vit D 25-OH Tot 42.3 >30 ng/mL Health Based Reference Values* < 20 ng/mL Deficient 20-30 ng/mL Insufficient > 30 ng/mL Sufficient Assessment and Plan Assessment & Plan (1) Mild atherosclerosis of carotid artery: Code(s): I65.29 - Occlusion and stenosis of unspecified carotid artery Qualifiers: Laterality: left Qualified Code(s): I65.22 - Occlusion and stenosis of left carotid artery Plan: Continue with aspirin 81 mg per, good control of cholesterol levels and blood pressure stressed. Followed by cardiology (2) Hyperlipidemia: Code(s): E78.5 - Hyperlipidemia, unspecified Qualifiers: Hyperlipidemia type: pure hypercholesterolemia Qualified Code(s): E78.00 - Pure hypercholesterolemia, unspecified Plan: Fasting lipid levels ordered . Continue atorvastatin 80 mg daily taken together with Co Q10 and continue with ezetimibe 10 mg daily , in addition to adherence to low-cholesterol diet and regular exercise, at least 30 minutes 3 to 4 times a week. Advised patient to make healthy food choices, eat more fruits, vegetables, whole grains, wild caught fish and low-fat dairy. Limit amount of meat and fried or fatty food products, as well as processed foods and fast foods. Follow-up scheduled with repeat fasting lipid panel in months. (3) Osteoporosis: Code(s): M81.0 - Age-related osteoporosis without current pathological fracture Qualifiers: Osteoporosis type: age-related Presence of current pathological fracture: without current pathological fracture Qualified Code(s): M81.0 - Age- related osteoporosis without current pathological fracture Plan: Do regular weight-bearing exercise take adequate calcium from dietary sources and continue taking vitamin-D 3 at least 2000 units daily. Will check basic metabolic panel and vitamin-D level. A repeat bone density scan has been ordered already last 01/16/2024, will follow-up on this request (4) Impaired fasting glucose: Code(s): R73.01 - Impaired fasting glucose Plan: previous fasting blood sugars were elevated above 100 mg/dL. Impaired glucose metabolism increases the risk for developing diabetes mellitus type 2, as well as heart attack and stroke later on. Lifestyle changes that promotes weight loss, healthy eating habits, and regular exercise are important, and can prevent the progression to diabetes (5) Postmenopausal syndrome: Code(s): N95.1 - Menopausal and female climacteric states Plan: Patient complaining severe frequent hot flashes likely vasomotor symptoms due to menopause. Check estradiol, thyroid stimulating hormone with reflex free T4. Advised to get an updated mammogram for this year, and will add whether to start on hormone for treatment of vasomotor symptoms (6) Essential hypertension: Code(s): I10 - Essential (primary) hypertension Plan: Blood pressure has been elevated. Goal blood pressure less than 130/80. Started on lisinopril 5 mg once a day in a.m.. Reinforced importance of following a low-salt diet. Will have her see nurse navigator to check blood pressure in a week Orders: Orders Complete Blood Count Auto Diff 08/05/24 E78.00 - Pure hypercholesterolemia, unspecified, I10 - Essential (primary) hypertension, I65.22 - Occlusion and stenosis of left carotid artery, M81.0 - Age-related osteoporosis without current pathological fracture, N95.1 - Menopausal and female climacteric states, R73.01 - Impaired fasting glucose TSH reflex Free T4 08/05/24 E78.00 - Pure hypercholesterolemia, unspecified, I10 - Essential (primary) hypertension, I65.22 - Occlusion and stenosis of left carotid artery, M81.0 - Age-related osteoporosis without current pathological fracture, N95.1 - Menopausal and female climacteric states, R73.01 - Impaired fasting glucose Vitamin D 25-OH Total 08/05/24 E78.00 - Pure hypercholesterolemia, unspecified, I10 - Essential (primary) hypertension, I65.22 - Occlusion and stenosis of left carotid artery, M81.0 - Age-related osteoporosis without current pathological fracture, N95.1 - Menopausal and female climacteric states, R73.01 - Impaired fasting glucose Vitamin B12 and Folate 08/05/24 E78.00 - Pure hypercholesterolemia, unspecified, I10 - Essential (primary) hypertension, I65.22 - Occlusion and stenosis of left carotid artery, M81.0 - Age-related osteoporosis without current pathological fracture, N95.1 - Menopausal and female climacteric states, R73.01 - Impaired fasting glucose Lipid Panel 08/05/24 E78.00 - Pure hypercholesterolemia, unspecified, I10 - Essential (primary) hypertension, I65.22 - Occlusion and stenosis of left carotid artery, M81.0 - Age-related osteoporosis without current pathological fracture, N95.1 - Menopausal and female climacteric states, R73.01 - Impaired fasting glucose Comprehensive [place]. Panel Fast 08/05/24 E78.00 - Pure hypercholesterolemia, unspecified, I10 - Essential (primary) hypertension, I65.22 - Occlusion and stenosis of left carotid artery, M81.0 - Age-related osteoporosis without current pathological fracture, N95.1 - Menopausal and female climacteric states, R73.01 - Impaired fasting glucose Estradiol Ultra Sensitive 08/05/24 E78.00 - Pure hypercholesterolemia, unspec ified, I10 - Essential (primary) hypertension, I65.22 - Occlusion and stenosis of left carotid artery, M81.0 - Age-related osteoporosis without current pathological fracture, N95.1 - Menopausal and female climacteric states, R73.01 - Impaired fasting glucose Medications: New lisinopril 5 mg PO DAILY 30 tabs 1RF Coding Level of Care Code Est Pt Level 4 (87711) Complex EM visit Add On G2211 Diagnoses Mild atherosclerosis of left carotid artery I65.22 Laterality: left Pure hypercholesterolemia E78.00 Hyperlipidemia type: pure hypercholesterolemia Age-related osteoporosis without current pathological fracture M81.0 Osteoporosis type: age-related Presence of current pathological fracture: without current pathological fracture Impaired fasting glucose R73.01 Postmenopausal syndrome N95.1 Essential hypertension I10 Additional Codes REJI-7 Assessment Billing - REJI-7 Assessment Tool: REJI-7 Assessment 64321 ([id number])
[2024-08-05 12:20] VITALS: BP 162/86; PULSE 76; O2SAT 95; BMI 29.2
== END 2024-08-05 14:10 | disposition home or self-care (01) ==
PROVIDERS: PCP Internal Medicine; Visit Provider Internal Medicine
DX: I65.22 Occlusion and stenosis of left carotid artery (principal); E78.00 Pure hypercholesterolemia, unspecified; M81.0 Age-related osteoporosis without current pathological fracture; R73.01 Impaired fasting glucose; N95.1 Menopausal and female climacteric states; I10 Essential (primary) hypertension

== ENCOUNTER → 2024-08-05 11:38 | Outpatient (BNVA) | payer MEDICARE, SELFPAY | PROVIDERS: PCP Internal Medicine; Visit Provider Internal Medicine | DX: I65.22 Occlusion and stenosis of left carotid artery (principal); E78.00 Pure hypercholesterolemia, unspecified; M81.0 Age-related osteoporosis without current pathological fracture; R73.01 Impaired fasting glucose; N95.1 Menopausal and female climacteric states; I10 Essential (primary) hypertension | CPT/HCPCS: 96127; 99212 ==

== ENCOUNTER 2024-08-10 08:10 | Outpatient (REF) | payer MEDICARE, SELFPAY ==
[2024-08-10 10:27] LABS: MANUAL DIFF FLAG NO
[2024-08-10 10:33] LABS: Basophils Absolute Auto 0.1 X10*3/uL (0.0-0.2); Eosinophils Absolute Auto 0.2 X10*3/uL (0.0-0.4); Eosinophils Percent Auto 2.4 % (0-4); Hematocrit 42.5 % (37.0-47.0); Hemoglobin 13.3 g/dl (12.0-16.0); Imm Gran Abs Auto 0.02 X10*3/uL (0.00-0.03); Imm Gran Pct Auto 0.2 % (0.0-0.4); Lymphocytes Absolute Auto 2.4 X10*3/uL (1.2-4.9); Lymphocytes Percent Auto 28.4 % (20-40); Mean Corpuscular HGB Conc 31.3 g/dl (31.0-35.0); Mean Corpuscular Hemoglobin 27.7 pg (27.0-33.0); Mean Corpuscular Volume 88.5 fL (80.0-98.0); Mean Platelet Volume 11.1 fL (9.4-12.3); Monocytes Absolute Auto 0.9 X10*3/uL (0.1-1.2); Monocytes Percent Auto 10.3 % (2-11); Neutrophils Absolute Auto 4.8 x10*3/uL (2.0-8.3); Neutrophils Percent Auto 57.7 % (45-73); Platelet Count 330 X10*3/uL (160-400); Red Cell Distribution Width 14.7 % (11.0-16.0); White Blood Count 8.3 X10*3/uL (4.8-10.8)
[2024-08-10 10:52] LABS: Alanine Aminotransferase 57 U/L (0-31); Albumin Level 4.1 g/dL (3.5-5.0); Alkaline Phosphatase 65 U/L (39-117); Anion Gap 13 (12-20); Aspartate Amino Transferase 40 U/L (5-31); Bilirubin Total 0.3 mg/dL (0.0-1.0); Blood Urea Nitrogen 18 mg/dL (9-16); Calcium 9.5 mg/dL (8.4-10.2); Carbon Dioxide 25 mmol/L (22-29); Chloride 107 mmol/L (96-108); Cholesterol 131 mg/dL (<200); Estimated Glomerular Filt Rate > 60; Glucose Fasting 117 mg/dL (60-99); HDL Cholesterol 44 mg/dL (>40); LDL Cholesterol Calculated 60 mg/dL (<100); Potassium 4.1 mmol/L (3.3-5.1); Sodium 141 mmol/L (135-145); Total Protein 7.3 g/dL (6.5-8.0); Triglycerides 139 mg/dL (<150)
[2024-08-10 11:11] LABS: Folate 8.3 ng/mL (> or = 4.0); Vitamin B12 1365 pg/mL (200-900)
[2024-08-10 11:17] LABS: TSH reflex Free T4 1.29 uIU/mL (0.32-4.0); Vitamin D 25-OH Total 52.4 ng/mL (>30)
[2024-08-17 03:09] LABS: Estradiol Ultra Sensitive 9 pg/mL
== END 2024-08-10 08:11 | disposition home or self-care (01) ==
LOC: HO.HMGCLDS 08:10
PROVIDERS: PCP Internal Medicine; Visit Provider Internal Medicine
DX: M81.0 Age-related osteoporosis without current pathological fracture (principal); E78.00 Pure hypercholesterolemia, unspecified; I65.22 Occlusion and stenosis of left carotid artery; N95.1 Menopausal and female climacteric states; I10 Essential (primary) hypertension; R73.01 Impaired fasting glucose
CPT/HCPCS: 36415; 80053; 80061; 82306; 82607; 82670; 82746; 84443; 85025

== ENCOUNTER → 2024-08-13 15:18 | Outpatient (BNVA) | payer MEDICARE, SELFPAY | PROVIDERS: PCP Internal Medicine ==

== ENCOUNTER 2024-10-14 12:17 | Day surgery (SDC) | payer MEDICARE, SELFPAY ==
[2024-10-14 13:23] VITALS: BMI 29.7
--- NOTE | 2024-10-14 13:25 | P.CONAN_ITS ---
Documented by User: Lorraine Bynum NP 10/13/24 12:24 HPI - Anesthesia Eval Consult details Narrative: 69yo F for Colonoscopy PMFSH Active Problems Active Problems: All Active Problems Essential hypertension (Acute) Postmenopausal syndrome (Acute) Impaired fasting glucose (Acute) Osteoporosis (Acute) Hyperlipidemia (Acute) Mild atherosclerosis of carotid artery (Acute) Past Medical History Medical History Essential hypertension Postmenopausal syndrome Impaired fasting glucose Encounter for annual wellness visit (AWV) in Medicare patient Osteoporosis Hyperlipidemia Mild atherosclerosis of carotid artery Former smoker, stopped smoking in distant past Osteopenia (~2008) Pulmonary nodules Tubular adenoma of colon (~2004) Family History Family History Sister Substance use disorder Sister Substance use disorder Other Mental health disorder Surgical History Surgical History History of cataract surgery (~2018) History of endoscopy (~2018) History of colonoscopy (~2018) Social History Social History Housing: House Alcohol intake: current Alcohol intake frequency: a few times a week Comment: mechanical fall Patient Tobacco Use Status: Former Tobacco user Years Smoked: 29 (onset 14, 2ppd x 29yrs, 50pyh, quit 1997) e-Cigarette/Vaping Use: Never Used Second Hand Smoke Exposure: No Use of substances other than those prescribed or required for medical reasons: No Are you DNR?: No Advance Directives: No Advance Directives Information Provided: Yes Recently lost weight without trying: No service: No 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 occupational status: employed 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 needs: No Hearing needs: No Vision needs: No Meds Allergies Allergy/AdvReac Type Severity Reaction Status Date / Time No Known Allergies Allergy Verified 10/14/24 13:20 [No Known Allergies*] Home Medications ?Medication ?Instructions ?Recorded ?Confirmed ?Last Taken ?Type aspirin 81 mg tablet,delayed 81 mg PO DAILY 07/11/21 10/14/24 Unknown History release (Adult Aspirin Regimen) coenzyme Q10 75 mg capsule (Ultra 75 mg PO DAILY 07/11/21 10/14/24 Unknown History CoQ10) cholecalciferol (vitamin D3) 25 25 mcg PO DAILY 11/30/21 10/14/24 Unknown History mcg (1,000 unit) capsule meloxicam 15 mg tablet 15 mg PO DAILY 01/14/23 10/14/24 Unknown History mometasone 0.1 % topical cream 0 appl topical DAILY 01/14/23 10/14/24 Unknown History Assessment and Plan Assessment Anesthesia Assessment: Chart Reviewed Documented by User: Renetta Barrett DO 10/14/24 13:52 [facility] Past Medical History Medical History Essential hypertension Postmenopausal syndrome Impaired fasting glucose Encounter for annual wellness visit (AWV) in Medicare patient Osteoporosis Hyperlipidemia Mild atherosclerosis of carotid artery Former smoker, stopped smoking in distant past Osteopenia (~2008) Pulmonary nodules Tubular adenoma of colon (~2004) Family History Family History Sister Substance use disorder Sister Substance use disorder Other Mental health disorder Family history of problems with anesthesia: No Surgical History Surgical History History of cataract surgery (~2018) History of endoscopy (~2018) History of colonoscopy (~2018) History of Problems with Anesthesia: No Social History Social History Housing: House Alcohol intake: current Alcohol intake frequency: a few times a week Comment: mechanical fall Patient Tobacco Use Status: Former Tobacco user Years Smoked: 29 (onset 14, 2ppd x 29yrs, 50pyh, quit 1997) e-Cigarette/Vaping Use: Never Used Second Hand Smoke Exposure: No Use of substances other than those prescribed or required for medical reasons: No Are you DNR?: No Advance Directives: No Advance Directives Information Provided: Yes Recently lost weight without trying: No service: No 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 occupational status: employed 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 needs: No Hearing needs: No Vision needs: No Meds Allergies Allergy/AdvReac Type Severity Reaction Status Date / Time No Known Allergies Allergy Verified 10/14/24 13:20 [No Known Allergies*] Home Medications ?Medication ?Instructions ?Recorded ?Confirmed ?Last Taken ?Type aspirin 81 mg tablet,delayed 81 mg PO DAILY 07/11/21 10/14/24 Unknown History release (Adult Aspirin Regimen) coenzyme Q10 75 mg capsule (Ultra 75 mg PO DAILY 07/11/21 10/14/24 Unknown History CoQ10) cholecalciferol (vitamin D3) 25 25 mcg PO DAILY 11/30/21 10/14/24 Unknown History mcg (1,000 unit) capsule meloxicam 15 mg tablet 15 mg PO DAILY 01/14/23 10/14/24 Unknown History mometasone 0.1 % topical cream 0 appl topical DAILY 01/14/23 10/14/24 Unknown History Exam Exam Date and Time: 10/14/24 1325 Height,Weight and Vital Signs: Height 5 ft 4 in Weight 78.471 kg Vital Signs Temperature 98.5 F 10/14/24 13:27 Pulse Rate 84 10/14/24 13:27 Respiratory Rate 15 10/14/24 13:27 Blood Pressure 143/59 H 10/14/24 13:27 Pulse Oximetry 95 10/14/24 13:27 Oxygen Delivery Method Room Air 10/14/24 13:27 Temperature 98.5 F 10/14/24 13:27 Pulse Rate 84 10/14/24 13:27 Respiratory Rate 15 10/14/24 13:27 Blood Pressure 143/59 H 10/14/24 13:27 Pulse Oximetry 95 10/14/24 13:27 Oxygen Delivery Method Room Air 10/14/24 13:27 Airway Mallampati Class: II TM Dist: >3cm Neck ROM: Full Denture: Upper and Lower Heart: S1S2 Lungs: CTAB Assessment and Plan Assessment Anesthesia Assessment: Anesthesia Plan Discussed and Chart Reviewed Final Anesthetic Review Family History of Problems with Anesthesia: No History of Problems with Anesthesia: No NPO: Yes ASA Class: II Final Preanesthetic Review: No Changes in Pt Med Stat, Meds/Allgs Chart Reviewed, Consent Obtained/Reviewed and Anes Risks/Benef Reviewed Patient Risk: Low Procedure Risk: Low Anesthetic Plan Anesthetic Plan: MAC: and Agree w/ Assess. and Plan Disposition: Standard PACU
[2024-10-14 13:27] VITALS: BP 143/59; PULSE 84; RESP 15; TEMP 36.9; O2SAT 95
[2024-10-14] MEDS: Lactated Ringers 1,000 ML 100 ML IVCONT (13:31)
--- NOTE | 2024-10-14 13:36 | P.HPSUR_ITS ---
Pre-Procedural Eval Section A - 24 Hr Update-Section A only Date of Service: 10/14/24 Section B - Complete if H&P > 30 days Chief Complaint: screening Details of Present Illness: see H&P no changes Relevant Family History (Specify if Yes): No Relevant Social History: None Present Medications: see Short Stay Collaborative assessment Medical History: No relevant PMH History of Previous Operations: Relevant previous surgery/procedure and date(s) Allergies: Allergies Allergy/AdvReac Type Severity Reaction Status Date / Time No Known Allergies Allergy Verified 10/14/24 13:20 [No Known Allergies*] Review of Systems Sugical H&P ROS: Negative: Constitution, Cardiovascular, Respiratory, Neurological, Psychiatric, Hem-Onc, Allergic/Immunologic, Gastrointestinal, Genitourinary, Musculoskeletal, Integumentary, Endocrine and Eyes/ Ears/Nose/Throat Exam Surgical H&P Exam: Normal: HEENT, Normal: Heart, Normal: Lungs, Normal: Extremities, Normal: Abdomen, Normal: Skin and Normal: Neurological Plan Diagnosis/Plan: Unchanged I have reviewed the history and physical and performed a pertinent physical examination on my patient. No changes have occurred unless specified. Time Spent With Patient Time: Total time managing care of this patient today ____ minutes.
[2024-10-14 14:18] VITALS: BP 97/43; PULSE 80; RESP 16; TEMP 36.9; O2SAT 96
[2024-10-14 14:33] VITALS: BP 105/57; PULSE 76; RESP 16; TEMP 36.9; O2SAT 96
--- NOTE | 2024-10-14 14:40 | OP_ITS ---
DATE OF SERVICE: 10/14/2024 SURGEON: Sean Loredo MD INDICATIONS: Colon cancer screening and prior history of colon polyps. PREOPERATIVE DIAGNOSIS: POSTOPERATIVE DIAGNOSIS: PROCEDURE PERFORMED: Colonoscopy to the terminal ileum. ESTIMATED BLOOD LOSS: COMPLICATIONS: ANESTHESIA: Monitored anesthesia care. ASSISTANTS: SPECIMENS: DESCRIPTION OF PROCEDURE: A history and physical was performed. The risks and benefits of the procedure were explained to the patient and informed consent was obtained. The patient was placed in the left lateral decubitus position. A digital rectal exam was performed and was found to be normal. The Olympus pediatric video colonoscope was introduced into the rectum and advanced to the cecum. The cecum was identified by transillumination, palpation, and identification of ileocecal valve. Examination was performed and the scope was removed. She tolerated the procedure well and was returned to recovery area in stable condition. FINDINGS: The terminal ileum was examined and appeared normal. The visualized colonic mucosa was normal. The quality of the prep was good. There was vu diverticulosis. The sigmoid was somewhat tortuous. No polyps were identified. Retroflexed examination showed some small internal hemorrhoids. IMPRESSION: Normal colonoscopy. RECOMMENDATIONS: 1. Follow up as needed. 2. Repeat colonoscopy is recommended in 10 years for average-risk individuals. This is optional based on age. MD KEATON Lynch/JESÚS / [id number]
--- OUTSIDE RECORDS SUMMARY | 2024-10-20 18:25 | XMS_ITS ---
Author Organization [facility] Address [address] [place] [phone] Care Team Providers Care Director Work Name Role Phone Acosta URENA, Alysa Primary Care Provider Sean Mccoy Jr REASON FOR VISIT screening Encounters Encounter Location Date Provider [place] [facility] [place] [address] [place], [place] [phone] 10/14/2024 Sean Loredo Jr PLAN OF TREATMENT No Information
--- OUTSIDE RECORDS SUMMARY | 2024-10-20 18:26 | XMS_ITS ---
Author Organization [facility] Address [address] [place] [phone] Care Team Providers Care Cooking Show Host Name Role Phone Acosta URENA, Alysa Primary Care Provider Sean Mccoy Jr REASON FOR VISIT screening Encounters Encounter Location Date Provider Diagnosis [facility] Outpatient [address] [place], [place] [phone] 09/23/2024 Sean Loredo Jr PLAN OF TREATMENT No Information
--- OUTSIDE RECORDS SUMMARY | 2024-10-20 18:26 | XMS_ITS ---
Author Organization [facility] Address [address] [place] [phone] Care Team Providers Care Manager Talent Acquisition Name Role Phone Acosta URENA, Alysa Primary Care Provider Sean Mccoy Jr REASON FOR VISIT colonoscopy Encounters Encounter Location Date Provider Diagnosis [facility] [address] [place] [phone] 09/18/2024 Sean Loredo Jr PLAN OF TREATMENT No Information
--- OUTSIDE RECORDS SUMMARY | 2024-10-20 18:26 | XMS_ITS | Patient Health Record ---
Author Organization [facility] Address [address] [place] [phone] Care Team Providers Care Electric Distribution Engineer Name Role Phone Acosta URENA, Alysa Primary Care Provider Sean Mccoy Jr Unavailable ALLERGIES No Known Allergies RESULTS Component Value Reference Range Notes MAMMOGRAM DIGITAL BILATERAL SCREEN Reviewed date:09/07/2024 09:01:56 AM Interpretation:Normal Performing Lab: Notes/Report: Normal REASON FOR REFERRAL No Information MEDICATIONS Medication SIG (Take, Route, Frequency, Duration) Notes Start Date End Date Status CoQ10 100 MG 1 capsule with a riky l Orally Once a day for 30 day(s) Active MiraLax (colon prep) 17 GM/SCOOP mixed with Gatorade or Crystal Light Orally begin at 5:00 p.m. the day before the procedure for 1 day 09/07/2024 Active Vitamin D 1000 UNIT 1 tablet Orally Once a day for 30 day(s) Active Aspir-81 81 MG 1 tablet Orally Once a day for 30 day(s) Active Atorvastatin Calcium 80 MG 1 tablet Oral ly Once a day for 30 day(s) Active Acetaminophen ER 650 MG TAKE 1-2 TABLETS BY MOUTH EVERY 8 HOURS NEEDED FOR PAIN Oral for 15 Active Ezetimibe 10 MG 10 MG ORALLY DAILY O ral for 90 Active Meloxicam 15 MG Oral for 30 Ac tive Lisinopril 5 MG Oral for 30 Ac tive IMMUNIZATIONS Vaccine Route Administration Date Status Comme nts Influenza Unknown 10/22/2018 Administered Influenza Unknown 08/11/2024 Administered Pneumococcal Unknown 08/11/2024 Administered SOCIAL HISTORY Sex Assigned At : Social History Observation Description Sex Assigned At Unknown Alcohol Screen Question Answer Notes Did you have a drink contain ing alcohol in the past year? Yes How often did you have a dri nk containing alcohol in the past year? 2 to 3 times a week (3 points) How many drinks did you have on a typical day when you were drinking in the past year? 3 or 4 drinks (1 point) How often did you have 6 or more drinks on one occasion in the past year? Never (0 point) Points 4 Interpretation Positive PROBLEMS Problem Type ICD Code Onset Dates Problem Status W/U Status Risk SNOMED Code Notes Problem Colon cancer screening (Z12.11) Active confirmed 805973967 Problem Hypertension, unspecified type (I10) Active confirmed [id number] Problem Gastroesophageal reflux disease, unspecified whether esophagitis present (K21.9) Active confirmed 246249140 VITAL SIGNS Temperature 97.7 degrees Fahrenheit 09/07/2024 Blood pressure diastolic 78 mm Hg 09/07/2024 Height 63.5 in 09/07/2024 Blood pressure systolic 140 mm Hg 09/07/2024 Weight 176 lbs 09/07/2024 BMI 30.68 kg/m2 09/07/2024 Encounters Encounter Location Date Provider Diagnosis [facility] [place] Out[place] [address] [place], [place] [phone] 09/23/2024 Sean Loredo Jr [facility] Outpatient [address] [place], [place] [phone] 10/14/2024 Sean Loredo Jr [facility] [address] [place] [phone] 09/07/2024 Sean Loredo Jr Colon cancer screening Z12.11 and Gastroesophageal reflux disease, unspecified whether esophagitis present K21.9 [facility] [address] [place] [phone] 09/18/2024 Sean Loredo Jr ASSESSMENTS Encounter Date Diagnosis Assessment Notes Treatment Notes Treatment Clinical Notes 09/07/2024 Colon cancer screeni ng (ICD-10 - Z12.11) 09/07/2024 Gastroesophageal ref lux disease, unspecified whether esophagitis present (ICD-10 - K21.9) PLAN OF TREATMENT Pending Test Test Name Order Date CT COLON SCREENING NO CONTRAST 9 Future Test Test Name Order Date COLONOSCOPY 09/16/2013 UPPER GI ENDOSCOPY 02/18/2019 COLONOSCOPY 02/18/2019 COLONOSCOPY 09/07/2024 Insurance Providers Payer Name Payer Address Payer Phone Subscriber Number Group Number Insured Name Patient Relationship to Insured Coverage Start Date Coverage End Date MEDICARE OF [place] [address] [place] [address] [phone] [id number] SAPNA AMATO Self - patient is the insured [employer] ATT[employer] CLAIMS [address] [place] [address] [phone] [id number] SAPNA AMATO Self - patient is the insured MEDICAL (GENERAL) HISTORY Medical History History ICD Code Colonoscopy 09/29, tubular adenoma, five -year followup Hyperlipidemia Hypertension Gastroesophageal reflux disease, EGD , no BE or HP Surgical History Surgery Date(Month/Year) cyst removal cataract-lens implants
== END 2024-10-14 15:12 | disposition home or self-care (01) ==
PROVIDERS: PCP Internal Medicine; Visit Provider Internal Medicine Gastroenterology
PROC: 0DJD8ZZ Inspection of Lower Intestinal Tract, Via Natural or Artificial Opening Endoscopic (ICD-10-PCS; CPT 45378; principal; 2024-10-14 13:40)
DX: Z12.11 Encounter for screening for malignant neoplasm of colon (principal); Z86.0101 Personal history of adenomatous and serrated colon polyps; K57.30 Diverticulosis of large intestine without perforation or abscess without bleeding; K64.8 Other hemorrhoids
CPT/HCPCS: G0105; J2003; J2704

== ENCOUNTER 2024-11-18 10:14 | Outpatient (AMB) | payer MEDICARE, SELFPAY ==
--- NOTE | 2024-11-18 10:21 | AM.OFFWIN_ITS ---
Intake Vital Signs 11/18/24 10:24 Weight 180 lb BP 120/84 Blood Pressure Location Rt brachial Position Sitting Pulse 83 Pulse Source Pulse Oximeter Temp 98.8 F Temp Source Oral Pulse Oximetry (%) 98 Oxygen Delivery Method Room Air Intake Visit Reasons: EP-headaches, sore throat, nausea, stuffy nose Intake Note: Patient here for headache, cough, nausea, congestion which has been present for 3 weeks. Patient Tobacco Use Status: Former Tobacco user Allergies No Known Allergies [No Known Allergies*] Allergy (Verified 11/18/24 10:25) Do you need a note to return to daycare/school/sports/work: No HPI HPI Comments History of Present Illness Details Is a 69-year-old female complaining of 2-3 weeks of headaches, some nausea, stuffy nose, feelings of dizziness and some ear pain. She states she felt like she was getting better 3 days ago but then she woke up feeling worse the next day. She did test for COVID 2 weeks ago and it was negative. She has been treating her symptoms with chrf-siu-yhiydqu medications. She denies any fevers, shortness of breath, wheezing. She denies any history of asthma or COPD [facility] Medical History (Updated 11/18/24 @ 10:53 by Gabriella Marks PA-C) Essential hypertension Postmenopausal syndrome Impaired fasting glucose Encounter for annual wellness visit (AWV) in Medicare patient Osteoporosis Hyperlipidemia Mild atherosclerosis of carotid artery Former smoker, stopped smoking in distant past Osteopenia (~2008) Pulmonary nodules Tubular adenoma of colon (~2004) Surgical History History of cataract surgery (~2018) History of endoscopy (~2018) History of colonoscopy (~2018) Family History Sister Substance use disorder Sister Substance use disorder Other Mental health disorder Social History Housing: House Alcohol intake: current Alcohol intake frequency: a few times a week Comment: mechanical fall Patient Tobacco Use Status: Former Tobacco user Years Smoked: 29 (onset 14, 2ppd x 29yrs, 50pyh, quit 1997) e-Cigarette/Vaping Use: Never Used Second Hand Smoke Exposure: No service: No 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 occupational status: employed 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 needs: No Hearing needs: No Vision needs: No Review of Systems Const All systems reviewed & are unremarkable except as noted in HPI and below Physical Exam Vital Signs: Last Vital Signs Temp 98.8 F 11/18/24 10:24 Pulse 83 11/18/24 10:24 BP 120/84 11/18/24 10:24 Pulse Ox 98 11/18/24 10:24 Oxygen Delivery Method Room Air 11/18/24 10:24 Const General: cooperative, healthy appearing, comfortable and no acute distress Orientation/consciousness: patient oriented x3 Limitations: no limitations HEENT Head: Yes normal to inspection Ears: hearing grossly normal bilaterally, external ears normal and TM's normal b ilaterally General nose exam: Normal external nose present, Normal nares present and No nasal discharge present Face and sinus: Yes normal facial exam and Yes sinus tenderness (Right frontal) Mouth: Normal oral and palatal mucosa present and moist mucous membranes Throat: Yes tonsils normal, Yes uvula midline and Yes posterior oropharynx abnormal (Erythema) Eyes General: appearance normal, both eyes and all related structures Neck Neck: Yes normal visual inspection Resp Effort & Inspection: normal respiratory effort, able to speak in complete sentences, Actively coughing, no respiratory distress, not tachypneic, no tripod positioning and no use of accessory muscles Auscultation: clear to auscultation bilaterally Cardio Rate: regular rate Rhythm: regular rhythm Heart sounds: normal S1 and S2 Skin General skin exam: no rashes or lesions noted Neuro General: patient oriented x3 Extrem General: Yes normal to inspection and Yes no clubbing, cyanosis or edema Assessment & Plan Assessment & Plan (1) Otitis media: Code(s): H66.90 - Otitis media, unspecified, unspecified ear Qualifiers: Otitis media type: suppurative Chronicity: acute Laterality: bilateral Recurrence: non-recurrent Spontaneous tympanic membrane rupture: without spontaneous rupture Qualified Code(s): H66.003 - Acute suppurative otitis media without spontaneous rupture of ear drum, bilateral Plan: Recommended patient use Flonase twice a day for the next week, also sent Augmentin to cover both her ear infection and her sinusitis. Recommended rest, hydration. If her symptoms continue, we could add an oral steroid but she would need to be re-evaluated. Recommended she wait until she is done taking the antibiotics and see how she feels. (2) Sinusitis, acute frontal: Code(s): J01.10 - Acute frontal sinusitis, unspecified Qualifiers: Recurrence: non-recurrent Qualified Code(s): J01.10 - Acute frontal sinusitis, unspecified Plan: See above Medications: New amoxicillin-pot clavulanate 875-125 mg 1 tab PO Q12H 14 tabs 0RF Coding Level of Care Code Est Pt Level 4 (61311) Diagnoses Non-recurrent acute suppurative otitis media of both ears without spontaneous rupture of tympanic membranes H66.003 Otitis media type: suppurative Chronicity: acute Laterality: bilateral Recurrence: non-recurrent Spontaneous tympanic membrane rupture: without spontaneous rupture Acute non-recurrent frontal sinusitis J01.10 Recurrence: non-recurrent
[2024-11-18 10:24] VITALS: BP 120/84; PULSE 83; TEMP 37.1; O2SAT 98
--- OUTSIDE RECORDS SUMMARY | 2024-11-18 10:30 | XMS_ITS | Patient Health Record ---
Author Organization [facility] Address [address] [place] [phone] Care Team Providers Care Laborer Cement Gun Placing Name Role Phone Acosta URENA, Alysa Primary Care Provider Sean Mccoy Jr Unavailable [phone] ALLERGIES No Known Allergies RESULTS Component Value [...] Problem Colon cancer screening (Z12.11) Active confirmed 173762701 Problem Hypertension, unspecified type (I10) Active confirmed 22627549 Problem Gastroesophageal reflux disease, unspecified whether esophagitis present (K21.9) Active confirmed 258717109 VITAL SIGNS Temperature 97.7 degrees Fahrenheit 09/07/2024 Blood pressure diastolic 78 mm Hg 09/07/2024 Height 63.5 in 09/07/2024 Blood pressure systolic 140 mm Hg 09/07/2024 Weight 176 lbs 09/07/2024 BMI 30.68 kg/m2 09/07/2024 Encounters Encounter Location Date Provider Diagnosis [facility] [place] [address], [place] [phone] 09/23/2024 Sean Loredo Jr [facility] [place] Out[place] [address], [place] [phone] 10/14/2024 Sean Loredo Jr Colon cancer screening Z12.11 and Personal history of colonic polyps Z86.0100 [facility] [address] [place] [phone] 09/07/2024 Sean Loredo Jr Colon cancer screening Z12.11 and Gastroesophageal reflux disease, unspecified whether esophagitis present K21.9 [facility] [address] [place] [phone] 09/18/2024 Sean Loredo Jr ASSESSMENTS Encounter Date Diagnosis Assessment Notes Treatment Notes Treatment Clinical Notes 10/14/2024 Colon cancer screeni ng (ICD-10 - Z12.11) 10/14/2024 Personal history of colonic polyps (ICD-10 - Z86.0100) 09/07/2024 Colon cancer screeni ng (ICD-10 - [...] OF [place] [address] [place] [phone] [id number] ASPNA AMATO Self - patient is the insured [employer] ATT[employer] CLAIMS [address] [place] [address] [id number] SAPNA AMATO Self - patient is the insured MEDICAL (GENERAL) HISTORY Medical History History ICD Code Colonoscopy 09/29, tubular adenoma, five -year followup Hyperlipidemia Hypertension Gastroesophageal reflux disease, EGD , no BE or HP Surgical History Surgery Date(Month/Year) cyst removal cataract-lens implants
--- OUTSIDE RECORDS SUMMARY | 2024-11-18 10:30 | XMS_ITS ---
Author Organization [facility] Address [address] [place] [phone] Care Team Providers Care Frame Bender Name Role Phone Acosta URENA, Alysa Primary Care Provider Sean Mccoy Jr [phone] REASON FOR VISIT screening Encounters Encounter Location Date Provider Diagnosis [facility] [place] Outpatient [address], [place] [phone] 09/23/2024 Sean Loredo Jr PLAN OF TREATMENT No Information
--- OUTSIDE RECORDS SUMMARY | 2024-11-18 10:30 | XMS_ITS ---
Author Organization [facility] Address [address] [place] [phone] Care Team Providers Care District Ranger Name Role Phone Acosta URENA, Alysa Primary Care Provider Sean Mccoy Jr REASON FOR VISIT colonoscopy Encounters Encounter Location Date Provider Diagnosis [facility] [address] [place] [phone] 09/18/2024 Sean Loredo Jr PLAN OF TREATMENT No Information
== END 2024-11-18 11:04 | disposition home or self-care (01) ==
PROVIDERS: PCP Internal Medicine; Visit Provider Physician Assistant
DX: H66.003 Acute suppurative otitis media without spontaneous rupture of ear drum, bilateral (principal); J01.10 Acute frontal sinusitis, unspecified

== ENCOUNTER → 2024-11-18 10:14 | Outpatient (BNVA) | payer MEDICARE, SELFPAY | PROVIDERS: PCP Internal Medicine; Visit Provider Physician Assistant | DX: H66.003 Acute suppurative otitis media without spontaneous rupture of ear drum, bilateral (principal); J01.10 Acute frontal sinusitis, unspecified | CPT/HCPCS: 99212 ==

== ENCOUNTER 2025-01-20 13:20 | Outpatient (AMB) | payer MEDICARE, SELFPAY ==
--- NOTE | 2025-01-20 13:51 | MHC.OFFWIV ---
Intake Vital Signs 01/20/25 13:52 Weight 175 lb BP 120/80 Blood Pressure Location Lt brachial Position Sitting Pulse 78 Pulse Source Pulse Oximeter Temp 98.0 F Temp Source Oral Pulse Oximetry (%) 98 Oxygen Delivery Method Room Air Intake Visit Reasons: EP Ear infection, sinus congestion, cough/dizzy Intake Note: Patient here for cough, bilat ear discomfort, sinus congestion that has been present since Saturday. Patient Tobacco Use Status: Former Tobacco user Allergies No Known Allergies [No Known Allergies*] Allergy (Verified 01/20/25 13:53) Do you need a note to return to daycare/school/sports/work: No HPI HPI Comments History of Present Illness Details Patient is a 69 yo F who presents with ear pain, sinus congestion and cough She feels ear congestion, sinus pressure, and headaches + cough associated She said when she coughs a lot she feels lightheaded No fainting or syncope Ongoing since Saturday Had sick exposure to grandson No fever but + chills PFSH Medical History (Updated 01/20/25 @ 14:37 by Andreina Morales PA-C) Essential hypertension Postmenopausal syndrome Impaired fasting glucose Encounter for annual wellness visit (AWV) in Medicare patient Osteoporosis Hyperlipidemia Mild atherosclerosis of carotid artery Former smoker, stopped smoking in distant past Osteopenia (~2008) Pulmonary nodules Tubular adenoma of colon (~2004) Surgical History History of cataract surgery (~2018) History of endoscopy (~2018) History of colonoscopy (~2018) Family History Sister Substance use disorder Sister Substance use disorder Other Mental health disorder Social History Housing: House Alcohol intake: current Alcohol intake frequency: a few times a week Comment: mechanical fall Patient Tobacco Use Status: Former Tobacco user Years Smoked: 29 (onset 14, 2ppd x 29yrs, 50pyh, quit 1997) e-Cigarette/Vaping Use: Never Used Second Hand Smoke Exposure: No service: No Current occupational status: employed 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 needs: No Hearing needs: No Vision needs: No Review of Systems Const Reports chills and Denies fever(s) Eyes Denies blurry vision ENT Reports dizziness, Reports otalgia, Reports nasal congestion, Denies sinus pain and Reports sore throat Card Denies chest pain, Denies syncope and Denies dyspnea Resp Reports cough and Denies dyspnea GI Denies abdominal pain Musc Denies myalgias Neuro Reports dizziness and Denies syncope Physical Exam Vital Signs: Last Vital Signs Temp 98.0 F 01/20/25 13:52 Pulse 78 01/20/25 13:52 BP 120/80 01/20/25 13:52 Pulse Ox 98 01/20/25 13:52 Oxygen Delivery Method Room Air 01/20/25 13:52 General: Non-toxic, NAD. Speaking full sentences. Skin: Warm dry throughout Eye: EOMI HENT: Airway patent. Uvula midline. No pharyngeal erythema or edema. No HAIRSPRING II INSPECTOR. Bilateral canals clear. R Tm slight fluid. L TM appears dull but both are non-erythematous, non-bulging. No TM perforation or hemotympanum noted. Respiratory: CTA bilaterally. No wheezes, rales or rhonchi Cardiac: RRR. No murmur MSK: Full ROM extremities. Neurology: Alert. No aphasia or facial droop. Gait without abnormality Psych: Good mood and affect Assessment & Plan Assessment & Plan (1) Upper respiratory infection: Code(s): J06.9 - Acute upper respiratory infection, unspecified Qualifiers: URI type: unspecified viral URI Qualified Code(s): J06.9 - Acute upper respiratory infection, unspecified Plan: Patient seen and evaluated. Lungs CTA No swab indicated as outside timeframe for tx Tessalon for cough Fluids, rest Patient gave verbal understanding and had no additional questions or concerns at time of discharge All questions answered Medications: New benzonatate 200 mg PO BID-TID PRN 14 caps 0RF cough Coding Level of Care Code Est Pt Level 3 (78246) Diagnoses Viral upper respiratory tract infection J06.9 URI type: unspecified viral URI
[2025-01-20 13:52] VITALS: BP 120/80; PULSE 78; TEMP 36.7; O2SAT 98
--- OUTSIDE RECORDS SUMMARY | 2025-01-20 15:37 | XMS_ITS | Patient Health Record ---
Author Organization [facility] Address [address] [place] [phone] Care Team Providers Care Project Control Officer Name Role Phone Acosta URENA, Alysa Primary Care Provider Sean Mccoy Jr Unavailable Allergies No Known Allergies Results Component Value Reference Range Notes MAMMOGRAM DIGITAL BILATERAL SCREEN Reviewed date:09/07/2024 09:01:56 AM Interpretation:Normal Performing Lab: Notes/Report: Normal Reason For Referral No Information Medications Medication SIG (Take, Route, Frequency, Duration) Notes [...] 5 MG Oral for 30 Ac tive Immunizations Vaccine Route Administration Date Status Comme nts Influenza Unknown 10/22/2018 Administered Influenza Unknown 08/11/2024 Administered Pneumococcal Unknown 08/11/2024 Administered Social History Alcohol Screen Question Answer Notes Did you [...] Never (0 point) Points 4 Interpretation Positive Problems Problem Type SNOMED Code ICD Code Onset Dates Problem Status W/U Status Risk Notes Problem 395406090 Colon cancer screening (Z12.11) Active confirmed Problem 58155747 Hypertension, unspecified type (I10) Active confirmed Problem 784782493 Gastroesophageal reflux disease, unspecified whether esophagitis present (K21.9) Active confirmed Vital Signs Temperature 97.7 degrees Fahrenheit 09/07/2024 Blood pressure diastolic 78 mm Hg 09/07/2024 Height 63.5 in 09/07/2024 Blood pressure systolic 140 mm Hg 09/07/2024 Weight 176 lbs 09/07/2024 BMI 30.68 kg/m2 09/07/2024 Encounters Encounter Location Date Provider Diagnosis [facility] [place] [address] [place] [phone] 10/14/2024 Sean Loredo Jr Colon cancer screening Z12.11 and Personal history of colonic polyps Z86.0100 [facility] [address] [address] 09/07/2024 Sean Loredo Jr Colon cancer screening Z12.11 and Gastroesophageal reflux disease, unspecified whether esophagitis present K21.9 [facility] [address] [place] [phone] 09/18/2024 Sean Loredo Jr Assessments Encounter Date Diagnosis (ICD Code) Assessment Notes Treatment Notes Treatment Clinical Notes Section Notes 10/14/2024 Colon cancer screening (ICD-10 - Z12.11) 10/14/2024 Personal history of colonic polyps (ICD-10 - Z86.0100) 09/07/2024 Colon cancer screening (ICD-10 - Z12.11) We discussed gastroesophageal reflux disease today. We discussed diet, lifestyle modifications, and weight management regarding the treatment of reflux. She will continue to follow dietary recommendations. She is due for colon cancer screening. This will be arranged. She understands risks and benefits and agrees to proceed. She is advised stop aspirin and NSAIDs one week before the procedure. 09/07/2024 Gastroesophageal reflux disease, unspecified whether esophagitis present (ICD-10 - K21.9) We discussed gastroesophageal reflux disease today. We discussed diet, lifestyle modifications, and weight management regarding the treatment of reflux. She will continue to follow dietary recommendations. She is due for colon cancer screening. This will be arranged. She understands risks and benefits and agrees to proceed. She is advised stop aspirin and NSAIDs one week before the procedure. Plan Of Treatment Pending Test Test Name Order Date CT COLON SCREENING NO CONTRAST 9 Future Test Test Name Order Date COLONOSCOPY 09/16/2013 UPPER GI ENDOSCOPY 02/18/2019 COLONOSCOPY 02/18/2019 COLONOSCOPY 09/07/2024 Insurance Providers Payer Name Payer Address Payer Phone Subscriber Number Group Number Insured Name Patient Relationship to Insured Coverage Start Date Coverage End Date MEDICARE OF [place] [address] [place] [address] [id number] SAPNA AMATO Self - patient is the insured MEDEX ATTN CLAIMS [address] [place] [phone] [id number] SAPNA AMATO Self - patient is the insured Medical (General) History Medical History History ICD Code Colonoscopy 09/29, tubular adenoma, five -year followup Hyperlipidemia Hypertension Gastroesophageal reflux disease, EGD , no BE or HP Surgical History Surgery Date(Month/Year) cyst removal cataract-lens implants
--- OUTSIDE RECORDS SUMMARY | 2025-01-20 15:37 | XMS_ITS ---
Author Organization [facility] Address [address] [place] [phone] Care Team Providers Care Promos Executive Producer Name Role Phone Acosta URENA, Alysa Primary Care Provider Little Loredo Jr, Sean Tate REASON FOR VISIT colonoscopy Encounters Encounter Location Date Provider Diagnosis [facility] [address] [place] [phone] 09/18/2024 Sean Loredo Jr Plan Of Treatment No Information Progress Notes * SAPNA AMATO ADOB: [birth year] (69 yo F)Acc No.[id number]:09/18/2024 Patient:?LIMA SAPNA Chery :1955???Age:69 Y???Sex:Female Address:[address] [place] [phone] * true * Date:? Generated for Roselinei marky/Syeda/eTransmitting on:?01/20/2025 03:37 PM EDT
--- OUTSIDE RECORDS SUMMARY | 2025-01-20 15:37 | XMS_ITS ---
Author Organization [facility] Address [address] [place] [phone] Care Team Providers Care Database Architect Name Role Phone Acosta URENA, Alysa Primary Care Provider Sean Mccoy Jr REASON FOR VISIT screening Encounters Encounter Location Date Provider Diagnosis [facility] [place] [address], [place] [phone] 09/23/2024 Sean Loredo Jr Plan Of Treatment No Information Progress Notes * SAPNA AMATO ADOB: [birth year] (69 yo F)Acc No.[id number]:09/23/2024 COLON WITH MAC Patient:?LIMA SAPNA Miri Provider:?Sean Loredo MD :1955???Age:69 Y???Sex:Female D ate:09/23/2024 Address:[address] [place], [place] [phone] Pcp:Alysa Shane MD Subjective: * Chief Complaints: * ???1. Screening. * Medical History:? Objective: * Vitals:? Assessment: Plan: * Treatment: * * The named appointment provid er may or may not be the originator of this progress note, and it is not deemed complete until electronically signed by the appointment provider. Sign off status: Pending * Provider:?Sean Loredo MD Date:?1 11/23/2023 Generated for Roselinei marky/Nahomig/eTransmitting on:?01/20/2025 03:37 PM EDT
--- OUTSIDE RECORDS SUMMARY | 2025-01-20 15:38 | XMS_ITS ---
Author Organization [facility] Address [address] [place] [phone] Care Team Providers Care Sales Department Clerk Name Role Phone Acosta URENA, Alysa Primary Care Provider Sean Mccoy Jr [phone] REASON FOR VISIT screening Encounters Encounter Location Date Provider Diagnosis [facility] [place] Outpatient [address] [place], [place] [phone] 10/14/2024 Sean Loredo Jr Colon cancer screening Z12.11 and Personal history of colonic polyps Z86.0100 Assessments Encounter Date Diagnosis (ICD Code) Assessment Notes Treatment Notes Treatment Clinical Notes Section Notes 10/14/2024 Colon cancer screening (ICD-10 - Z12.11) 10/14/2024 Personal history of colonic polyps (ICD-10 - Z86.0100) Plan Of Treatment No Information Progress Notes * SAPNA AMATO ADOB: [birth year] (69 yo F)Acc No.[id number]:10/14/2024 COLON WITH MAC Patient:?LIMA SAPNA A Provider:?Sean Loredo MD :1955???Age:69 Y???Sex:Female D ate:10/14/2024 Address:[address] [place], [place] [phone] Pcp:Alysa Shane MD Subjective: * Chief Complaints: * ???1. Screening. * Medical History:? Objective: * Vitals:? Assessment: * Assessment: 1.?Colon cancer screening - Z12.11 (Primary)???2.?Personal history of colonic polyps - Z86.0100??? Plan: * Treatment: * Procedure Codes:?G0105 COLOR EC CANCR SCR; COLNSCPY HI RISK, 0529F INTRVL 3+YRS PTS CLNSCP DOCD, 0528F RCMND FLW-UP 10 YRS DOCD * * The named appointment provid er may or may not be the originator of this progress note, and it is not deemed complete until electronically signed by the appointment provider. Sign off status: Pending * Provider:?Sean Loredo MD Date:?1 12/15/2023 Generated for Bill negro/Syeda/Jessicaitting on:?01/20/2025 03:37 PM EDT
== END 2025-01-20 14:43 | disposition home or self-care (01) ==
PROVIDERS: PCP Internal Medicine; Visit Provider Physician Assistant
DX: J06.9 Acute upper respiratory infection, unspecified (principal)

== ENCOUNTER → 2025-01-20 13:20 | Outpatient (BNVA) | payer MEDICARE, SELFPAY | PROVIDERS: PCP Internal Medicine; Visit Provider Physician Assistant | DX: J06.9 Acute upper respiratory infection, unspecified (principal) | CPT/HCPCS: 99212 ==

== ENCOUNTER 2025-01-25 10:30 | Outpatient (REF) | payer MEDICARE, SELFPAY ==
[2025-01-25 14:29] LABS: Influenza A PCR NEGATIVE (Negative); Influenza B PCR NEGATIVE (Negative); Resp Syncy Virus RNA Qual PCR NEGATIVE (Negative); SARS COV2 PCR INHOUSE NEGATIVE (Negative)
== END 2025-01-25 10:31 | disposition home or self-care (01) ==
LOC: HO.LAB 10:30
PROVIDERS: Physician Assistant; PCP Internal Medicine
DX: Z13.89 Encounter for screening for other disorder (principal)
CPT/HCPCS: 0241U

== ENCOUNTER 2025-01-25 10:30 | Outpatient (AMB) | payer MEDICARE, SELFPAY ==
[2025-01-25 10:36] VITALS: BP 130/82; PULSE 108; TEMP 38.1; O2SAT 96; BMI 29.1
--- NOTE | 2025-01-25 10:36 | AM.OFFWIN_ITS ---
Intake Vital Signs 01/25/25 10:36 Height 5 ft 5 in Weight 175 lb BMI 29.1 BP 130/82 Blood Pressure Location Lt brachial Position Sitting Pulse 108 H Pulse Source Pulse Oximeter Temp 100.6 F H Temp Source Oral Pulse Oximetry (%) 96 Intake Visit Reasons: EP Cough worsening, headache, lightheaded Patient Tobacco Use Status: Former Tobacco user Allergies No Known Allergies [No Known Allergies*] Allergy (Verified 01/25/25 10:37) Do you need a note to return to daycare/school/sports/work: No HPI HPI Comments History of Present Illness Details History - The patient is a 69-year-old female pr esenting with worsening respiratory symptoms. She reports a fever of 100.6?F persisting over a week, increased fatigue, and occasional constipation attributed to Benzonatate use. - Her oxygen saturation has decreased to 96%, accompanied by a heart rate of 108 beats per minute. - The patient describes a persistent cou gh, headaches, sinus pressure, and worsening ear congestion - There is a noted absence of nausea, vo miting, diarrhea, shortness of breath, or wheezing. - Histories of asthma, COPD, and recent tobacco use are not present. - Diet and hydration have been challengi ng with only minor success in fluid intake. Physical Exam General: Cooperative, healthy appearing, comfortable and no acute distress Orientation/consciousness: Patient oriented x3 Limitations: No limitations Head: Normal to inspection Ears: Hearing grossly normal bilaterally, external ears normal, right TM with fluid, left ear TM with erythema and fluid Nose: Normal external nose present, Normal nares present and No nasal discharge present Face and sinus: Normal facial exam and Yes sinuses nontender Mouth: Normal oral and palatal mucosa present and moist mucous membranes Throat: Yes tonsils normal, Yes uvula midline. Posterior oropharynx erythema, throat appears blistered Eyes: Appearance normal, both eyes and all related structures Neck: Normal visual inspection Respiratory: Clear to auscultation bilaterally. Normal respiratory effort, able to speak in complete sentences, Actively coughing, no respiratory distress, not tachypneic, no tripod positioning and no use of accessory muscles, lungs sound tight Cardiovascular: Regular rate and rhythm. Normal S1 and S2 Skin: No rashes or lesions noted Neuro: Patient oriented x3 Extremities: Normal to inspection and Yes no clubbing, cyanosis or edema [facility] Medical History (Updated 01/20/25 @ 14:37 by Andreina Morales PA-C) Essential hypertension Postmenopausal syndrome Impaired fasting glucose Encounter for annual wellness visit (AWV) in Medicare patient Osteoporosis Hyperlipidemia Mild atherosclerosis of carotid artery Former smoker, stopped smoking in distant past Osteopenia (~2008) Pulmonary nodules Tubular adenoma of colon (~2004) Surgical History History of cataract surgery (~2018) History of endoscopy (~2018) History of colonoscopy (~2018) Family History Sister Substance use disorder Sister Substance use disorder Other Mental health disorder Social History Housing: House Alcohol intake: current Alcohol intake frequency: a few times a week Comment: mechanical fall Patient Tobacco Use Status: Former Tobacco user Years Smoked: 29 (onset 14, 2ppd x 29yrs, 50pyh, quit 1997) e-Cigarette/Vaping Use: Never Used Second Hand Smoke Exposure: No service: No 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 occupational status: employed 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 needs: No Hearing needs: No Vision needs: No Review of Systems Const All systems reviewed & are unremarkable except as noted in HPI and below Physical Exam Vital Signs: Last Vital Signs Temp 100.6 F H 01/25/25 10:36 Pulse 108 H 01/25/25 10:36 BP 130/82 01/25/25 10:36 Pulse Ox 96 01/25/25 10:36 BMI result Body Mass Index 29.1 Assessment & Plan Assessment & Plan (1) Upper respiratory infection: Code(s): J06.9 - Acute upper respiratory infection, unspecified Qualifiers: URI type: unspecified viral URI Qualified Code(s): J06.9 - Acute upper respiratory infection, unspecified Plan: The patient is experiencing a respiratory infection that is causing worsening fever, cough, and symptoms consistent with a viral infection. Immediate diagnostic evaluation with a chest x-ray will rule out pneumonia. An inhaler will be administered to assist with airway opening and reducing bronchospasm, while codeine cough syrup will manage nocturnal cough symptoms effectively as tesselon pearles were ineffective, pending patient comfort and effect. Subject to x-ray results, informing any antibiotic use. I will provide instruction on inhaler usage and assess any subsequent medication requests through proper verification to avoid prescription barriers. Appropriate follow-up will be managed based on x-ray findings and symptomatic progression. Patient was informed and verbally consented to the use of an ambient scribe for clinic note documentation during this visit Orders: Orders SARS-CoV2/FLU/RSV Today R09.89 - Other specified symptoms and signs involving the circulatory and respiratory systems XR chest 2V Today R05.9 - Cough, unspecified Medications: New albuterol sulfate 90 mcg/actuation 2 puffs inhalation Q6H PRN 8.5 grams 0RF shortness of breath or wheezing or cough codeine-guaifenesin 10-100 mg/5 mL 10 mL PO Q4-6H PRN 120 mL 0RF cold symptoms Coding Level of Care Code Est Pt Level 4 (96133) Diagnoses Viral upper respiratory tract infection J06.9 URI type: unspecified viral URI
--- OUTSIDE RECORDS SUMMARY | 2025-01-25 11:50 | XMS_ITS ---
Author Organization [facility] Address [address] [place] [phone] Care Team Providers Care Conflicts Analyst Name Role Phone Acosta URENA, Alysa Primary Care Provider Sean Mccoy Jr REASON FOR VISIT screening Encounters Encounter Location Date Provider Diagnosis [facility] [place] Out[place] [address] [place], [place] [phone] 09/23/2024 Sean Loredo Jr Plan Of Treatment No Information Progress Notes * SAPNA AMATO ADOB: [birth year] (69 yo F)Acc No.[id number]:09/23/2024 COLON WITH MAC Patient:?LIMA SAPNA Miri Provider:?Sean Loredo MD :1955???Age:69 Y???Sex:Female D ate:09/23/2024 Address:[address] [place], [place] [phone] Pcp:Alysa Shane MD Subjective: * Chief Complaints: [...] Loredo MD Date:?1 11/23/2023 Generated for Roselinei marky/Syeda/eTransmitting on:?01/25/2025 11:50 AM EDT
--- OUTSIDE RECORDS SUMMARY | 2025-01-25 11:50 | XMS_ITS | Patient Health Record ---
Author Organization [facility] Address [address] [place] [address] Care Team Providers Care Manager Country Name Role Phone Acosta URENA, Alysa Primary [...] Problem Status W/U Status Risk Notes Problem [id number] Colon cancer screening (Z12.11) Active confirmed Problem 43887007 Hypertension, unspecified type (I10) Active confirmed Problem 521448687 Gastroesophageal reflux disease, unspecified whether esophagitis present (K21.9) Active confirmed Vital Signs Temperature 97.7 degrees Fahrenheit 09/07/2024 Blood pressure diastolic 78 mm Hg 09/07/2024 Height 63.5 in 09/07/2024 Blood pressure systolic 140 mm Hg 09/07/2024 Weight 176 lbs 09/07/2024 BMI 30.68 kg/m2 09/07/2024 Encounters Encounter Location Date Provider Diagnosis [facility] Out[facility] [address] [place] [id number] 10/14/2024 Sean Loredo Jr Colon cancer screening Z12.11 and Personal history of colonic polyps Z86.0100 [facility] [address] [address] 09/07/2024 Sean Loredo Jr Colon cancer screening Z12.11 and Gastroesophageal reflux disease, unspecified whether esophagitis present K21.9 [facility] [address] [place] [phone] 09/18/2024 Sean Loredo Jr Assessments Encounter Date [...] MEDICARE OF [place] [address] [place] [address] [id number] SAPNA AMATO Self - patient is the insured MED[employer] ATTN CLAIMS [address] [place] [address] [id number] SAPNA AMATO Self - patient is the insured Medical (General) History Medical History History ICD Code Colonoscopy 09/29, tubular adenoma, five -year followup Hyperlipidemia Hypertension Gastroesophageal reflux disease, EGD , no BE or HP Surgical History Surgery Date(Month/Year) cyst removal cataract-lens implants
--- OUTSIDE RECORDS SUMMARY | 2025-01-25 11:50 | XMS_ITS ---
Author Organization [facility] Address [address] [place] [address] Care Team Providers Care Crystallizer Operator Name Role Phone Acosta URENA, Alysa Primary Care Provider Sean Mccoy Jr REASON FOR VISIT screening Encounters Encounter Location Date Provider Diagnosis [facility] [place] [address] [place], [place] [phone] 10/14/2024 Sean Loredo Jr Colon cancer screening Z12.11 and Personal history of colonic polyps Z86.0100 Assessments Encounter Date Diagnosis (ICD Code) Assessment Notes Treatment Notes Treatment Clinical Notes Section Notes 10/14/2024 Colon cancer screening (ICD-10 - Z12.11) 10/14/2024 Personal history of colonic polyps (ICD-10 - Z86.0100) Plan Of Treatment No Information Progress Notes * SAPNA AMATO ADOB: [birth year] (69 yo F)Acc No.[id number]:10/14/2024 COLON WITH MAC Patient:?LIMA SAPNA A Provider:?Sean Loredo MD :1955???Age:69 Y???Sex:Female D ate:10/14/2024 Address:[address] [place], [place] [phone] Pcp:Alysa Shane MD Subjective: * Chief Complaints: [...] Loredo MD Date:?1 12/15/2023 Generated for Bill negro/Syeda/Иванsmitting on:?01/25/2025 11:50 AM EDT
--- OUTSIDE RECORDS SUMMARY | 2025-01-25 11:50 | XMS_ITS ---
Author Organization [facility] Address [address] [place] [phone] Care Team Providers Care Interpretive Naturalist Name Role Phone Acosta URENA, Alysa Primary Care Provider Little Loredo Jr, Sean Tate REASON FOR VISIT colonoscopy Encounters Encounter Location Date Provider Diagnosis [facility] [address] [place] [phone] 09/18/2024 Sean Loredo Jr Plan Of Treatment No Information Progress Notes * SAPNA AMATO ADOB: [birth year] (69 yo F)Acc No.[id number]:09/18/2024 Patient:?LIMA SAPNA Chery :1955???Age:69 Y???Sex:Female Address:[address] [place] [phone] * true * Date:? Generated for Roselinei marky/Syeda/eTransmitting on:?01/25/2025 11:50 AM EDT
== END 2025-01-25 11:46 | disposition home or self-care (01) ==
PROVIDERS: PCP Internal Medicine; Visit Provider Physician Assistant
DX: J06.9 Acute upper respiratory infection, unspecified (principal)

== ENCOUNTER 2025-01-25 11:14 | Outpatient (REF) | payer MEDICARE, SELFPAY ==
--- NOTE | ~2025-01-25 | XR_ITS ---
EXAMINATION: XR CHEST 2 VIEWS HISTORY: R05.9 - Cough, unspecified COMPARISON: There are no prior studies for comparison. FINDINGS: PA and lateral views of the chest are submitted. The lungs are expanded and clear. There is no pleural effusion, pneumothorax, or pulmonary vascular congestion. The heart is normal in size. The bones are intact. XR/XR chest 2V IMPRESSION: Clear lungs. Electronically signed by: Boston Busby MD 01/25/2025 12:36 PM EDT
== END 2025-01-25 11:15 | disposition home or self-care (01) ==
LOC: HO.HMGCX 11:14
PROVIDERS: PCP Internal Medicine; Visit Provider Physician Assistant
DX: R05.9 Cough, unspecified (principal); J06.9 Acute upper respiratory infection, unspecified
CPT/HCPCS: 0241U; 71046; 99212

== ENCOUNTER → 2025-01-25 11:20 | Outpatient (BNV) | payer MEDICARE, SELFPAY | PROVIDERS: PCP Internal Medicine; Visit Provider Radiology Diagnostic Radiology | DX: R05.9 Cough, unspecified (principal) | CPT/HCPCS: 71046 ==

== ENCOUNTER 2025-07-14 08:25 | Outpatient (AMB) | payer MEDICARE, SELFPAY ==
--- OUTSIDE RECORDS SUMMARY | 2024-09-23 09:50 | XMS_ITS ---
Author Organization [facility] Address [address] [place] [phone] Care Team Providers Care Ultrasound Manager Name Role Phone Acosta URENA, Alysa Primary Care Provider Sean Mccoy Jr [phone] REASON FOR VISIT screening Encounters Encounter Location Date Provider Diagnosis [facility] [place] [address] [place], [place] [phone] 09/23/2024 Sean Loredo Jr Plan Of Treatment No Information Progress Notes * LIMA SAPNA ADOB: [birth year] (70 yo F)Acc No.[id number]:09/23/2024 COLON WITH MAC Patient: SAPNA SNYDER Provider: Alena Loredo MD :1955 A ge:69 Y S ex:Female Date:09/23/2024 Address:[address] [place], [place] [phone] Pcp:Alysa Shane MD Subjective: * Chief Complaints: [...] Date: 11/23/2023 Generated for Printi ng/Faxing/eTransmitting on: 0 07/14/2025 08:51 AM EDT
--- OUTSIDE RECORDS SUMMARY | 2024-10-14 09:40 | XMS_ITS ---
Author Organization [facility] Address [address] [place] [phone] Care Team Providers Care Prenatal Teacher Name Role Phone Acosta URENA, Alysa Primary Care Provider Sean Mccoy Jr REASON FOR VISIT screening Encounters Encounter Location Date Provider Diagnosis [facility] [place] [address] [place], [place] [phone] 10/14/2024 Sean Loredo Jr Colon cancer screening Z12.11 and Personal history of colonic polyps Z86.0100 Assessments Encounter Date Diagnosis (ICD Code) Assessment Notes Treatment Notes Treatment Clinical Notes Section Notes 10/14/2024 Colon cancer screening (ICD-10 - Z12.11) 10/14/2024 Personal history of colonic polyps (ICD-10 - Z86.0100) Plan Of Treatment No Information Progress Notes * SAPNA AMATO ADOB: [birth year] (70 yo F)Acc No.[id number]:10/14/2024 COLON WITH MAC Patient: SAPNA SNYDER A Provider: Alena Loredo MD :1955 A ge:69 Y S ex:Female Date:10/14/2024 Address:[address] [place], [place] [phone] Pcp:Alysa Shane MD Subjective: * Chief Complaints: * 1 . Screening. * Medical History: Objective: * Vitals: Assessment: * Assessment: 1. C olon cancer screening - Z12.11 (Primary) 2 . P ersonal history of colonic polyps - Z86.0100 Plan: * Treatment: * Procedure Codes: G 0105 COLOREC CANCR SCR; COLNSCPY HI RISK, 0529F INTRVL 3+YRS PTS CLNSCP DOCD, 0528F RCMND FLW-UP 10 YRS DOCD * * The named appointment provid er may or may not be the originator of this progress note, and it is not deemed complete until electronically signed by the appointment provider. Sign off status: Pending * Provider: Alena Loredo MD Date: 1 12/15/2023 Generated for Bill negro/Syeda/Jessicaitting on: 0 07/14/2025 08:51 AM EDT
--- NOTE | 2025-07-14 08:28 | MHC.OFFVIS ---
Vital Signs 07/14/25 08:29 Height 5 ft 5 in Weight 174 lb 9.698 oz BMI 29.1 BP 126/78 Blood Pressure Location Lt brachial Position Sitting Pulse 83 Pulse Source Monitor Intake Visit Reasons: 2 year fu Intake Note: 2 Year FU Veterinary Milk Specialist Required: No Accompanied by: Self / Same As Patient Allergies No Known Allergies (No Known Allergies*) Allergy (Verified 01/25/25 10:37) Medication List - Last Reconciled 07/14/25 by Rock Gill MD aspirin (Adult Aspirin Regimen) 81 mg PO DAILY atorvastatin 80 mg PO BEDTIME cholecalciferol (vitamin D3) 25 mcg PO DAILY coenzyme Q10 (Ultra CoQ10) 75 mg PO DAILY ezetimibe 10 mg PO DAILY lisinopril 5 mg PO DAILY meloxicam 15 mg PO DAILY mometasone 0.1% 0 appl topical DAILY HPI Comments Details: Phyllis comes for follow-up after 2 years. She says she has been not able to lose much weight because of inability get out done exercise due to feet arthritis. She has been having some increased exertional shortness of breath. Denies any orthopnea, PND. No exertional chest pain. Denies any prolonged palpitation irregular heartbeat. Takes all her medications. LDL is optimized at 60 mg/dL on current therapy. She denies any lightheadedness, syncope. [facility] Medical History Essential hypertension Postmenopausal syndrome Impaired fasting glucose Encounter for annual wellness visit (AWV) in Medicare patient Osteoporosis Hyperlipidemia Mild atherosclerosis of carotid artery Former smoker, stopped smoking in distant past Osteopenia (~2008) Pulmonary nodules Tubular adenoma of colon (~2004) Surgical History History of cataract surgery (~2018) History of endoscopy (~2018) History of colonoscopy (~2018) Family History Sister Substance use disorder Sister Substance use disorder Other Mental health disorder Social History Housing: House Alcohol intake: current Alcohol intake frequency: a few times a week Comment: mechanical fall Patient Tobacco Use Status: Former Tobacco user Years Smoked: 29 (onset 14, 2ppd x 29yrs, 50pyh, quit 1997) e-Cigarette/Vaping Use: Never Used Second Hand Smoke Exposure: No service: No Current occupational status: employed 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 needs: No Hearing needs: No Vision needs: No Review of Systems Const Denies daytime sleepiness, Denies difficulty sleeping, Denies snoring, Denies stops breathing during sleep and Denies weakness Card Denies chest pain, Denies rapid heart rate, Denies irregular heart rhythm, Denies claudication, Denies leg edema, Denies lightheadedness, Denies palpitations, Denies dyspnea, Reports dyspnea on exertion, Denies orthopnea, Denies paroxysmal nocturnal dyspnea and Denies slow heart rate Resp Denies cough, Denies dyspnea, Reports dyspnea on exertion and Denies snoring GI Reports no additional complaints, Denies hematochezia, Denies change in stool character and Denies dyspepsia Musc Denies abnormal gait, Denies muscle weakness and Denies numbness Neuro Denies abnormal gait, Denies numbness and Denies weakness Endo Denies palpitations Physical Exam Vital Signs: Last Vital Signs Pulse 83 07/14/25 08:29 BP 126/78 07/14/25 08:29 BMI result Body Mass Index 29.1 Const General: cooperative, comfortable, no acute distress, alert and awake Nutritional Appearance: overweight Orientation/consciousness: patient oriented x3 Limitations: no limitations Neck Neck: Yes trachea midline, Yes supple and Yes no JVD Carotids: bruit on the left Resp Effort & Inspection: normal respiratory effort Auscultation: clear to auscultation bilaterally Cardio Jugular venous distension: no JVD Palpation: normal PMI Rate: regular rate Rhythm: regular rhythm Heart sounds: S1 normal heart sound present, S2 normal heart sound present, no click, no gallops, no murmurs and no rubs Bruits: carotid bruit on the left GI Auscultation: normal bowel sounds Skin General skin exam: no rashes or lesions noted Neuro General: patient oriented x3 and no focal motor deficits Extrem General: Yes no clubbing, cyanosis or edema Office Procedures EKG Details: EKG shows normal sinus rhythm with normal EKG 98643-[id number], Complete Assessment & Plan Assessment & Plan (1) Short of breath on exertion: Code(s): R06.02 - Shortness of breath Category: Medical Plan: Exertional shortness of breath in this elderly woman could be related to deconditioning and weight gain. Although myocardial ischemia needs to be ruled out. Will suggest a stress echocardiogram to assess for the same. Otherwise we discussed about participate in regular physical activity and gradual weight loss program. Different types of aerobic exercise besides walking were discussed. She understands and agrees. (2) Essential hypertension: Code(s): I10 - Essential (primary) hypertension Category: Medical Plan: Hypertension which is currently well optimized on current low-dose lisinopril therapy. Continue the same. Importance of good blood pressure control was discussed. Target goal blood pressure less than 130/84. Advised to monitor blood pressure at home maintain a log. Low-salt diet was discussed. Participate in heart healthy lifestyle was discussed. (3) Mild atherosclerosis of carotid artery: Code(s): I65.29 - Occlusion and stenosis of unspecified carotid artery Category: Medical Qualifiers: Laterality: left Qualified Code(s): I65.22 - Occlusion and stenosis of left carotid artery Plan: Bilateral mild carotid disease. Currently on good medical therapy. Continue aggressive blood pressure control as above. Continue low-dose aspirin therapy. Continue intense lipid modification currently on high dose statin as well as ezetimibe therapy with well optimized LDL. Annual lipid panel should be checked. Goal LDL closer to 60 mg/dL. Will follow up in the clinic in 2 years time, sooner p.r.n.. Thank you for allowing me to partake in her care Orders: Orders CA echo stress exercise Today R06.02 - Shortness of breath US carotid duplex BI 1 Week I65.22 - Occlusion and stenosis of left carotid artery Coding Level of Care Code Est Pt Level 4 (18488) Complex EM visit Add On G2211 Diagnoses Short of breath on exertion R06.02 Essential hypertension I10 Mild atherosclerosis of left carotid artery I65.22 Laterality: left CPT Codes EKG - CPT: 69702-Buqkbnyrraisaaihl, Complete ([id number])
[2025-07-14 08:29] VITALS: BP 126/78; PULSE 83; BMI 29.1
--- OUTSIDE RECORDS SUMMARY | 2025-07-14 08:51 | XMS_ITS | Patient Health Record ---
Author Organization [facility] Address [address] [place] [address] Care Team Providers Care Reed Polisher Name Role Phone Acosta URENA, Alysa Primary [...] Problem Status W/U Status Risk Notes Problem 237931746 Colon cancer screening (Z12.11) Active confirmed Problem 73383141 Hypertension, unspecified type (I10) Active confirmed Problem 981480814 Gastroesophageal reflux disease, unspecified whether esophagitis present (K21.9) Active confirmed Vital Signs Temperature 97.7 degrees Fahrenheit 09/07/2024 Blood pressure diastolic 78 mm Hg 09/07/2024 Height 63.5 in 09/07/2024 Blood pressure systolic 140 mm Hg 09/07/2024 Weight 176 lbs 09/07/2024 BMI 30.68 kg/m2 09/07/2024 Encounters Encounter Location Date Provider Diagnosis [facility] Outpatient [address] [place] [id number] 10/14/2024 Sean Loredo Jr Colon cancer screening Z12.11 and Personal history of colonic polyps Z86.0100 [facility] [address] [address] 09/07/2024 Sean Loredo Jr Colon cancer screening Z12.11 and Gastroesophageal reflux disease, unspecified whether esophagitis present K21.9 [facility] [address] [place] [phone] 09/18/2024 Saen Loredo Jr Assessments Encounter Date Diagnosis (ICD [...] MEDICARE OF [place] [address] [place] [address] [id number] SAPNA AMATO Self - patient is the insured MED[employer] ATTN CLAIMS [address] [place] [address] [id number] SAPNA AMATO Self - patient is the insured Medical (General) History Medical History History ICD Code Colonoscopy 09/29, tubular adenoma, five -year followup Hyperlipidemia Hypertension Gastroesophageal reflux disease, EGD , no BE or HP Surgical History Surgery Date(Month/Year) cyst removal cataract-lens implants
--- OUTSIDE RECORDS SUMMARY | 2025-07-14 08:51 | XMS_ITS | Patient Health Record ---
Author Organization [facility] Address [address] [place] [address] Care Team Providers Care Curb Attendant Name Role Phone Nirav Sanchez MD Primary Care Provider UnavailJavier Grier Unavailable [phone] Reason For Referral No Information Plan Of Treatment Pending Test Test Name Order Date X ray : Foot, left 3V 07/02/2011 Insurance Providers Payer Name Payer Address Payer Phone Subscriber Number Group Number Insured Name Patient Relationship to Insured Coverage Start Date Coverage End Date [facility] All Others [address] [place] [address] [id number] Gabriella Pedroza Self - patient is the insured Medical (General) History Medical History History ICD Code mumps measles chicken pox
== END 2025-07-14 08:56 | disposition home or self-care (01) ==
LOC: HO.HCS 08:25
PROVIDERS: PCP Internal Medicine; Visit Provider Internal Medicine Cardiovascular Disease
DX: R06.02 Shortness of breath (principal); I10 Essential (primary) hypertension; I65.22 Occlusion and stenosis of left carotid artery
CPT/HCPCS: 93010; 99214; G2211

== ENCOUNTER → 2025-07-14 08:25 | Outpatient (BNVA) | payer MEDICARE, SELFPAY | PROVIDERS: PCP Internal Medicine; Visit Provider Internal Medicine Cardiovascular Disease | DX: I65.22 Occlusion and stenosis of left carotid artery (principal); I10 Essential (primary) hypertension; R06.02 Shortness of breath; Z87.891 Personal history of nicotine dependence | CPT/HCPCS: 93005; 99212 ==

== ENCOUNTER → 2025-08-16 10:48 | Outpatient (REF) | payer MEDICARE, SELFPAY ==
--- OUTSIDE RECORDS SUMMARY | 2024-09-23 09:50 | XMS_ITS ---
Author Organization [facility] Address [address] [place] [phone] Care Team Providers Care Earth Science Laboratory Technician Name Role Phone Acosta URENA, Alysa Primary Care Provider Sean Mccoy Jr REASON FOR VISIT screening Encounters Encounter Location Date Provider Diagnosis [facility] [place] [address] [place], [place] [phone] 09/23/2024 Sean Loredo Jr Plan Of Treatment No Information Progress Notes * LIMA SAPNA ADOB: [birth year] (70 yo F)Acc No.[id number]:09/23/2024 COLON WITH MAC Patient: SAPNA SNYDER Provider: Alena Loredo MD :1955 A ge:69 Y S ex:Female Date:09/23/2024 Address:[address] [place], [place] [phone] Pcp:Alysa Shane MD Subjective: * Chief Complaints: [...] Date: 11/23/2023 Generated for Printi ng/Faxing/eTransmitting on: 01:01 PM EDT
--- OUTSIDE RECORDS SUMMARY | 2024-10-14 09:40 | XMS_ITS ---
Author Organization [facility] Address [address] [place] [phone] Care Team Providers Care Watch Dial Stoner Name Role Phone Acosta URENA, Alysa Primary Care Provider Sean Mccoy Jr REASON FOR VISIT screening Encounters Encounter Location Date Provider Diagnosis [facility] [place] Outpatient [address] [place], [place] [phone] 10/14/2024 Sean Loredo Jr Colon cancer screening Z12.11 and Personal history of colonic polyps Z86.0100 Assessments Encounter Date Diagnosis (ICD Code) Assessment Notes Treatment Notes Treatment Clinical Notes Section Notes 10/14/2024 Colon cancer screening (ICD-10 - Z12.11) 10/14/2024 Personal history of colonic polyps (ICD-10 - Z86.0100) Plan Of Treatment No Information Progress Notes * SAPNA AMATO ADOB: [birth year] (70 yo F)Acc No.[id number]:10/14/2024 COLON WITH MAC Patient: SAPNA SNYDER A Provider: Alena Loredo MD :1955 A ge:69 Y S ex:Female Date:10/14/2024 Address:[address] [place], [place] [phone] Pcp:Alysa Shane MD Subjective: * Chief Complaints: [...] provider. Sign off status: Pending * Provider: lAena Loredo MD Date: 1 12/15/2023 Generated for Bill negro/Syeda/Jessicaitting on: 01:01 PM EDT
--- NOTE | 2025-08-16 10:52 | CA_ITS ---
Acquisition Time: 2025-08-16 11:04:03 Total Exercise Time: 00:05:15 Test Indications: SOB Medications: LISINOPRIL ASA ATROVASTATIN Protocol: GT Max HR: 144 BPM 97% of Pred: 148 BPM Max BP: 136/72 mmHG Max Work Load: 7.0 METS Exercise stress test with exercise 5 min 15 sec of Gt protocol, achieving > 90% MPHR, with moderate shortness of breath, no chest discomfort, with isolated PACs and PVCs, one 3 beat atrial tach, with normotensive response to exercise, without EKG changes meeting criteria for ischemia. Echo images obtained by [employer] at rest and immediately post peak exercise. Definity contrast used. In recovery her breathing normalized. Test reviewed with Dr Gill. Referred By: Rock Gill Electronically Signed By: NAVDEEP DIXON
--- OUTSIDE RECORDS SUMMARY | 2025-08-16 13:01 | XMS_ITS | Patient Health Record ---
Author Organization [facility] Address [address] [place] [phone] Care Team Providers Care Oil Well Gun Perforator Operator Name Role Phone Acosta URENA, Alysa [...] Problem Status W/U Status Risk Notes Problem 336794370 Colon cancer screening (Z12.11) Active confirmed Problem 04680152 Hypertension, unspecified type (I10) Active confirmed Problem 995826355 Gastroesophageal reflux disease, unspecified whether esophagitis present (K21.9) Active confirmed Vital Signs Temperature 97.7 degrees Fahrenheit 09/07/2024 Blood pressure diastolic 78 mm Hg 09/07/2024 Height 63.5 in 09/07/2024 Blood pressure systolic 140 mm Hg 09/07/2024 Weight 176 lbs 09/07/2024 BMI 30.68 kg/m2 09/07/2024 Encounters Encounter Location Date Provider Diagnosis [facility] [address] [place] [phone] 10/14/2024 Sean Loredo Jr Colon cancer screening Z12.11 and Personal history of colonic polyps Z86.0100 [facility] [address] [address] 09/07/2024 Sean Loredo Jr Colon cancer screening Z12.11 and Gastroesophageal reflux disease, unspecified whether esophagitis present K21.9 [facility] [address] [place] [phone] 09/18/2024 Sean Loredo Jr Assessments Encounter Date [...] MEDICARE OF [place] [address] [place] [address] [id number] SAPNA AMATO Self - patient is the insured MED[employer] ATTN CLAIMS [address] [place] [address] [id number] SAPNA AMATO Self - patient is the insured Medical (General) History Medical History History ICD Code Colonoscopy 09/29, tubular adenoma, five -year followup Hyperlipidemia Hypertension Gastroesophageal reflux disease, EGD , no BE or HP Surgical History Surgery Date(Month/Year) cyst removal cataract-lens implants
--- OUTSIDE RECORDS SUMMARY | 2025-08-16 13:01 | XMS_ITS | Patient Health Record ---
Author Organization [facility] Address [address] [place] [address] Care Team Providers Care Nail Feeder Name Role Phone Nirav Sanchez MD Primary Care Provider UnavailJavier Maloney Unavailable [phone] Reason For Referral No Information Plan Of Treatment Pending Test Test Name Order Date X ray : Foot, left 3V 07/02/2011 Insurance Providers Payer Name Payer Address Payer Phone Subscriber Number Group Number Insured Name Patient Relationship to Insured Coverage Start Date Coverage End Date [facility] All Others [address] [place] [address] [id number] Gabriella Pedroza Self - patient is the insured Medical (General) History Medical History History ICD Code mumps measles chicken pox
== END ==
LOC: HO.CARD 10:48
PROVIDERS: PCP Internal Medicine; Visit Provider Internal Medicine Cardiovascular Disease
DX: R06.02 Shortness of breath (principal); Z79.899 Other long term (current) drug therapy
CPT/HCPCS: 93350; Q9957

== ENCOUNTER → 2025-08-16 10:52 | Outpatient (BNV) | payer MEDICARE, SELFPAY | PROVIDERS: PCP Internal Medicine; Visit Provider Nurse Practitioner Family | DX: R06.02 Shortness of breath (principal); I49.1 Atrial premature depolarization; I49.3 Ventricular premature depolarization | CPT/HCPCS: 93016; 93018; 93350; 93352 ==

== ENCOUNTER 2025-08-19 15:33 | Outpatient (REF) | payer MEDICARE, SELFPAY ==
[2025-08-20 11:48] LABS: Appearance Urine Clear; Glucose Urine UA Negative (Negative); PH 7.0 (5.0-9.0); Specific Gravity - Urine 1.020 (1.005-1.025); UMIC TRIGGER UA YES
== END 2025-08-19 15:34 | disposition home or self-care (01) ==
LOC: HO.LNP 15:33
PROVIDERS: PCP Internal Medicine; Visit Provider Physician Assistant Medical
DX: R10.13 Epigastric pain (principal); R35.0 Frequency of micturition
CPT/HCPCS: 81001; 99212

== ENCOUNTER 2025-08-19 15:33 | Outpatient (AMB) | payer MEDICARE, SELFPAY ==
--- NOTE | 2025-08-19 15:38 | AM.OFFWIN_ITS ---
Intake Vital Signs 08/19/25 15:42 Height 5 ft 5 in Weight 174 lb BMI 29.0 BP 126/80 Blood Pressure Location Rt brachial Position Sitting Pulse 86 Pulse Source Pulse Oximeter Temp 98.4 F Temp Source Oral Pulse Oximetry (%) 97 Oxygen Delivery Method Room Air Intake Visit Reasons: ep stomach ache have not gone since yesterday Patient Tobacco Use Status: Former Tobacco user Allergies No Known Allergies (No Known Allergies*) Allergy (Verified 08/19/25 15:43) Do you need a note to return to daycare/school/sports/work: No HPI HPI Comments History of Present Illness Details History of Present Illness - The patient is a 70-year-old female pr esenting with upper abdominal pain. - The abdominal pain is described as a b urning sensation with pressure, sometimes feeling like bloating, and has been associated with nausea and sour burps. - The patient reports no history of refl ux but has experienced similar symptoms recently, exacerbated by certain foods. - She has not had any bowel movements to day despite regular habits, and there is no blood in stools or vomiting. - The patient has experienced urinary sy mptoms, including pressure with minimal urine output, raising concerns for a urinary tract infection. - There is no history of gallbladder iss ues, but tenderness in the right upper quadrant suggests possible gallbladder involvement. - The patient has had recent dietary ind iscretions, including fried foods, which may have contributed to her symptoms. - She denies fever, chills, CP, SOB, junie k pain, history of GERD or stones. - She denies hematuria, dysuria, dischar ge or bleeding. Physical Exam General: Cooperative, healthy appearing, comfortable, no acute distress and well developed Orientation: Patient oriented x3 Respiratory: Normal respiratory effort and able to speak in complete sentences. Clear to auscultation bilaterally. No w/r/r noted. Cardiovascular: Regular rate and rhythm. Normal S1 and S2. No m/r/g noted. GI: Tender to palpation in the RUQ and epigastric region. No guarding or rebound tenderness noted. Negative [place] and Rov[place] noted. Negative psoas and obturator noted. Negative CVA tenderness noted. Skin: No rashes or lesions noted Patient was informed and verbally consented to the use of an ambient scribe for clinic note documentation during this visit. [facility] Medical History Essential hypertension Postmenopausal syndrome Impaired fasting glucose Encounter for annual wellness visit (AWV) in Medicare patient Osteoporosis Hyperlipidemia Mild atherosclerosis of carotid artery Former smoker, stopped smoking in distant past Osteopenia (~2008) Pulmonary nodules Tubular adenoma of colon (~2004) Surgical History History of cataract surgery (~2018) History of endoscopy (~2018) History of colonoscopy (~2018) Family History Sister Substance use disorder Sister Substance use disorder Other Mental health disorder Social History Housing: House Alcohol intake: current Alcohol intake frequency: a few times a week Comment: mechanical fall Patient Tobacco Use Status: Former Tobacco user Years Smoked: 29 (onset 14, 2ppd x 29yrs, 50pyh, quit 1997) e-Cigarette/Vaping Use: Never Used Second Hand Smoke Exposure: No service: No 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 occupational status: employed 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 needs: No Hearing needs: No Vision needs: No Review of Systems Const All systems reviewed & are unremarkable except as noted in HPI and below Physical Exam Vital Signs: Last Vital Signs Temp 98.4 F 08/19/25 15:42 Pulse 86 08/19/25 15:42 BP 126/80 08/19/25 15:42 Pulse Ox 97 08/19/25 15:42 Oxygen Delivery Method Room Air 08/19/25 15:42 BMI result Body Mass Index 29.0 Assessment & Plan Assessment & Plan (1) Epigastric abdominal pain: Code(s): R10.13 - Epigastric pain Plan Most likely GERD vs gastritis vs h pylori vs cholecystitis vs cholelithiasis vs UTI UA +leuko, 2+ blood plan - Plan to administer medication for stomach pain to assess if symptoms are due to reflux. - Dietary modifications recommended to avoid trigger foods. - omeprazole daily as prescribed - Urinalysis to be conducted to confirm diagnosis. - will send urine culture - Blood work to rule out gallbladder involvement. - will start antibiotics and wait for the urine culture to confirm - diet as tolerated - follow up with PCP Orders: Orders Complete Blood Count Auto Diff Today R10.13 - Epigastric pain Comprehensive Met. Panel Today R10.13 - Epigastric pain H pylori Ag Stool Today R10.13 - Epigastric pain AMB Urinalysis Automated Today R35.0 - Frequency of micturition Medications: New omeprazole 20 mg PO DAILY 30 caps 0RF cefuroxime axetil 500 mg PO Q12H 10 tabs 0RF Coding Level of Care Code Est Pt Level 4 (26450) Diagnoses Epigastric abdominal pain R10.13
[2025-08-19 15:42] VITALS: BP 126/80; PULSE 86; TEMP 36.9; O2SAT 97; BMI 29.0
== END 2025-08-19 16:18 | disposition home or self-care (01) ==
PROVIDERS: PCP Internal Medicine; Visit Provider Physician Assistant Medical
DX: R10.13 Epigastric pain (principal)

== ENCOUNTER 2025-08-20 08:09 | Outpatient (REF) | payer MEDICARE, SELFPAY ==
[2025-08-20 10:10] LABS: MANUAL DIFF FLAG NO
[2025-08-20 10:17] LABS: Hematocrit 41.4 % (37.0-47.0); Hemoglobin 13.0 g/dl (12.0-16.0); Imm Gran Abs Auto 0.10 X10*3/uL (0.00-0.03); Imm Gran Pct Auto 0.8 % (0.0-0.4); Lymphocytes Absolute Auto 2.8 X10*3/uL (1.2-4.9); Mean Corpuscular HGB Conc 31.4 g/dl (31.0-35.0); Mean Corpuscular Hemoglobin 27.5 pg (27.0-33.0); Mean Corpuscular Volume 87.7 fL (80.0-98.0); NRBC Abs Auto 0.000 X10*3/uL (0.0-0.012); NRBC Pct Auto 0.0 /100WBC (0.0-0.2); Platelet Count 343 X10*3/uL (160-400); Red Blood Count 4.72 X10*6/uL (4.20-5.50); White Blood Count 12.7 X10*3/uL (4.8-10.8)
[2025-08-20 10:50] LABS: Alanine Aminotransferase 59 U/L (0-31); Albumin Level 4.3 g/dL (3.5-5.0); Alkaline Phosphatase 68 U/L (39-117); Anion Gap 13 (12-20); Aspartate Amino Transferase 34 U/L (5-31); Blood Urea Nitrogen 11 mg/dL (9-16); Calcium 9.3 mg/dL (8.4-10.2); Carbon Dioxide 24 mmol/L (22-29); Chloride 106 mmol/L (96-108); Estimated Glomerular Filt Rate > 60; Potassium 3.9 mmol/L (3.3-5.1); Sodium 139 mmol/L (135-145); Total Protein 7.5 g/dL (6.5-8.0)
== END 2025-08-20 08:10 | disposition home or self-care (01) ==
LOC: HO.HMGCLDS 08:09
PROVIDERS: PCP Internal Medicine; Visit Provider Physician Assistant Medical
DX: R10.13 Epigastric pain (principal)
CPT/HCPCS: 36415; 80053; 85025

== ENCOUNTER 2025-08-21 10:39 | Outpatient (AMB) | payer MEDICARE, SELFPAY ==
--- OUTSIDE RECORDS SUMMARY | 2024-09-23 09:50 | XMS_ITS ---
Author Organization [facility] Address [address] [place] [phone] Care Team Providers Care Board Layer Name Role Phone Acosta URENA, Alysa Primary Care Provider Sean Mccoy Jr REASON FOR VISIT screening Encounters Encounter Location Date Provider Diagnosis [facility] [place] [address] [place], [place] [phone] 09/23/2024 Sean Loredo Jr Plan Of Treatment No Information Progress Notes * LIMA SAPNA ADOB: [birth year] (70 yo F)Acc No.[id number]:09/23/2024 COLON WITH MAC Patient: SAPNA SNYDER Provider: Alena Loredo MD :1955 A ge:69 Y S ex:Female Date:09/23/2024 Address:[address] [place], [place] [phone] Pcp:Alysa Shane MD Subjective: * Chief Complaints: * 1 . Screening. * Medical History: Objective: * Vitals: Assessment: Plan: * Treatment: * * The named appointment provid er may or may not be the originator of this progress note, and it is not deemed complete until electronically signed by the appointment provider. Sign off status: Pending * Provider: Alena Loredo MD Date: 11/23/2023 Generated for Printi ng/Faxing/eTransmitting on: 10:41 AM EDT
--- OUTSIDE RECORDS SUMMARY | 2024-10-14 09:40 | XMS_ITS ---
Author Organization [facility] Address [address] [place] [phone] Care Team Providers Care Carbon Brusher Assembler Name Role Phone Acosta URENA, Alysa Primary Care Provider Saen Mccoy Jr REASON FOR VISIT screening Encounters Encounter Location Date Provider Diagnosis [facility] [place] [address] [place], [place] [phone] 10/14/2024 Sean Loredo Jr Colon cancer screening Z12.11 and Personal history of colonic polyps Z86.0100 Assessments Encounter Date Diagnosis (ICD Code) Assessment Notes Treatment Notes Treatment Clinical Notes Section Notes 10/14/2024 Colon cancer screening (ICD-10 - Z12.11) 10/14/2024 Personal history of colonic polyps (ICD-10 - Z86.0100) Plan Of Treatment No Information Progress Notes * SAPNA AMATO ADOB: [birth year] (70 yo F)Acc No.[id number]:10/14/2024 COLON WITH MAC Patient: SAPNA SNYDER A Provider: Alena Loredo MD :1955 A ge:69 Y S ex:Female Date:10/14/2024 Address:[address] [place], [place] [phone] Pcp:Alysa Shane MD Subjective: * Chief Complaints: [...] 1 12/15/2023 Generated for Bill negro/Syeda/Jessicaitting on: 1 10:42 AM EDT
--- NOTE | 2025-08-21 10:41 | MHC.OFFWIV ---
Intake Vital Signs 08/21/25 10:43 Height 5 ft 5 in Weight 172 lb BMI 28.6 BP 138/78 Blood Pressure Location Rt brachial Position Sitting Respiration 16 Pulse 91 Pulse Source Pulse Oximeter Temp 98.8 F Temp Source Oral Pulse Oximetry (%) 96 Oxygen Delivery Method Room Air Intake Visit Reasons: EP, headaches/nose bleeds Intake Note: Pt is here today c/o H/A and nose bleeds: Last episode saturday nose bleed but has consent headaches Patient Tobacco Use Status: Former Tobacco user Allergies No Known Allergies (No Known Allergies*) Allergy (Verified 08/19/25 15:43) Medication List - Last Reconciled 08/21/25 by Leonardo Julian MD aspirin (Adult Aspirin Regimen) 81 mg PO DAILY atorvastatin 80 mg PO BEDTIME cefuroxime axetil 500 mg PO Q12H cholecalciferol (vitamin D3) 25 mcg PO DAILY coenzyme Q10 (Ultra CoQ10) 75 mg PO DAILY ezetimibe 10 mg PO DAILY lisinopril 5 mg PO DAILY meloxicam 15 mg PO DAILY mometasone 0.1% 0 appl topical DAILY omeprazole 20 mg PO DAILY HPI EP, headaches/nose bleeds HPI Details Patient has been having recurrent frontal headaches and nasal congestion and maxillary sinus pain as well. Recurrent nosebleeds and nasal discharge. She also notes some right ear pain Also has been feeling chills Patient was recently started on cefuroxime for a urinary tract infection. [facility] Medical History Essential hypertension Postmenopausal syndrome Impaired fasting glucose Encounter for annual wellness visit (AWV) in Medicare patient Osteoporosis Hyperlipidemia Mild atherosclerosis of carotid artery Former smoker, stopped smoking in distant past Osteopenia (~2008) Pulmonary nodules Tubular adenoma of colon (~2004) Surgical History History of cataract surgery (~2018) History of endoscopy (~2018) History of colonoscopy (~2018) Family History Sister Substance use disorder Sister Substance use disorder Other Mental health disorder Social History Housing: House Alcohol intake: current Alcohol intake frequency: a few times a week Comment: mechanical fall Patient Tobacco Use Status: Former Tobacco user Years Smoked: 29 (onset 14, 2ppd x 29yrs, 50pyh, quit 1997) e-Cigarette/Vaping Use: Never Used Second Hand Smoke Exposure: No service: No 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 occupational status: employed 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 needs: No Hearing needs: No Vision needs: No Review of Systems Const Details: See HPI Physical Exam Vital Signs: Last Vital Signs Temp 98.8 F 08/21/25 10:43 Pulse 91 08/21/25 10:43 Resp 16 08/21/25 10:43 BP 138/78 08/21/25 10:43 Pulse Ox 96 08/21/25 10:43 Oxygen Delivery Method Room Air 08/21/25 10:43 BMI result Body Mass Index 28.6 Const General: no acute distress and well developed Nutritional Appearance: well nourished Orientation/consciousness: patient oriented x3 HEENT Other: Significant nasal congestion with thick nasal discharge and pus in left [place] No blood Right TM with distension, erythema and pus Head: Yes normocephalic and Yes atraumatic Eyes General: appearance normal, both eyes and all related structures Pupils: Equal, round and reactive pupils present EOM: EOMs intact bilaterally Resp Effort & Inspection: normal respiratory effort Neuro General: patient oriented x3 and gait normal Cranial nerves: Yes Equal, round and reactive pupils present Psych Affect: normal affect Assessment & Plan Assessment & Plan (1) Sinusitis, acute frontal: Code(s): J01.10 - Acute frontal sinusitis, unspecified Qualifiers: Recurrence: non-recurrent Qualified Code(s): J01.10 - Acute frontal sinusitis, unspecified (2) Otitis media: Code(s): H66.90 - Otitis media, unspecified, unspecified ear Qualifiers: Otitis media type: suppurative Chronicity: acute Laterality: bilateral Recurrence: non-recurrent Spontaneous tympanic membrane rupture: without spontaneous rupture Qualified Code(s): H66.003 - Acute suppurative otitis media without spontaneous rupture of ear drum, bilateral Plan Patient already on cefuroxime for urinary tract infection This should cover in sinus infection and right otitis media Encouraged nasal saline flushes of nasal passages Warm compresses on her forehead Finish all antibiotic - will extend this Also advise second-generation antihistamine, Zyrtec for possible underlying allergies. Medications: New cetirizine 10 mg PO DAILY PRN 30 tabs 0RF allergy symptoms 30 days Changed From cefuroxime axetil 500 mg PO Q12H 10 tabs 0RF To cefuroxime axetil 500 mg PO Q12H 14 tabs 0RF 7 days Coding Level of Care Code Est Pt Level 3 (35820) Diagnoses Acute non-recurrent frontal sinusitis J01.10 Recurrence: non-recurrent Non-recurrent acute suppurative otitis media of both ears without spontaneous rupture of tympanic membranes H66.003 Otitis media type: suppurative Chronicity: acute Laterality: bilateral Recurrence: non-recurrent Spontaneous tympanic membrane rupture: without spontaneous rupture
--- OUTSIDE RECORDS SUMMARY | 2025-08-21 10:42 | XMS_ITS | Patient Health Record ---
Author Organization [facility] Address [address] [place] [id number] Care Team Providers Care Chief Nursing Executive Name Role Phone Acosta URENA, Alysa Primary [...] with a riky l Orally Once a day; Duration: 30 day(s) Active MiraLax (colon prep) 17 GM/SCOOP mixed with Gatorade or Crystal Light Orally begin at 5:00 p.m. the day before the procedure; Duration: 1 day 09/07/2024 Active Vitamin D 1000 UNIT 1 tablet Orally Once a day; Duration: 30 day(s) Active Aspir-81 81 MG 1 tablet Orally Once a day; Duration: 30 day(s) Active Atorvastatin Calcium 80 MG 1 tablet Oral ly Once a day; Duration: 30 day(s) Active Acetaminophen ER 650 MG TAKE 1-2 TABLETS BY MOUTH EVERY 8 HOURS NEEDED FOR PAIN Oral; Duration: 15 Active Ezetimibe 10 MG 10 MG ORALLY DAILY O ral; Duration: 90 Active Meloxicam 15 MG Oral; Duration: 30 Active Lisinopril 5 MG Oral; Duration: 30 Active Immunizations Vaccine Route Administration Date Status Comme [...] Problem Status W/U Status Risk Notes Problem Colon cancer screening (289304374) Colon cancer screening (Z12.11) Active confirmed Problem Essential hypertension (05948846) Hypertension, unspecified type (I10) Active confirmed Problem Gastroesophageal reflux disease (467776001) Gastroesophageal reflux disease, unspecified whether esophagitis present (K21.9) Active confirmed Vital Signs Temperature 97.7 degrees Fahrenheit 09/07/2024 Blood pressure diastolic 78 mm Hg 09/07/2024 Height 63.5 in 09/07/2024 Blood pressure systolic 140 mm Hg 09/07/2024 Weight 176 lbs 09/07/2024 BMI 30.68 kg/m2 09/07/2024 Encounters Encounter Location Date Provider Diagnosis [facility] [address] [place] [id number] 10/14/2024 Sean Loredo Jr Colon cancer screening Z12.11 and Personal history of colonic polyps Z86.0100 [facility] [address] [id number] 09/07/2024 Sean Loredo Jr Colon cancer screening Z12.11 and Gastroesophageal reflux disease, unspecified whether esophagitis present K21.9 [facility] [address] [address] 09/18/2024 Sean Loredo Jr Assessments Encounter Date [...] Date MEDICARE OF [place] [address] [facility] [address] [id number] SAPNA AMATO Self - patient is the insured MEDEX ATTN CLAIMS [address] [place] [address] [id number] SAPNA AMATO Self - patient is the insured Medical (General) History Medical History History ICD Code Colonoscopy 09/29, tubular adenoma, five -year followup Hyperlipidemia Hypertension Gastroesophageal reflux disease, EGD , no BE or HP Surgical History Surgery Date(Month/Year) cyst removal cataract-lens implants
--- OUTSIDE RECORDS SUMMARY | 2025-08-21 10:42 | XMS_ITS | Patient Health Record ---
Author Organization [facility] Address [address] [place] [address] Care Team Providers Care Stencil Machine Operator Name Role Phone Nirav Sanchez MD Primary Care Provider UnavailJavier Maloney Unavailable [phone] Reason For Referral No Information Plan Of Treatment Pending Test Test Name Order Date X ray : Foot, left 3V 07/02/2011 Insurance Providers Payer Name Payer Address Payer Phone Subscriber Number Group Number Insured Name Patient Relationship to Insured Coverage Start Date Coverage End Date [facility] All Others [address] [place] [address] [phone] [id number] Gabriella Pedroza Self - patient is the insured Medical (General) History Medical History History ICD Code mumps measles chicken pox
[2025-08-21 10:43] VITALS: BP 138/78; PULSE 91; RESP 16; TEMP 37.1; O2SAT 96; BMI 28.6
== END 2025-08-21 11:29 | disposition home or self-care (01) ==
PROVIDERS: PCP Internal Medicine; Visit Provider Family Medicine
DX: J01.10 Acute frontal sinusitis, unspecified (principal); H66.003 Acute suppurative otitis media without spontaneous rupture of ear drum, bilateral

== ENCOUNTER → 2025-08-21 10:39 | Outpatient (BNVA) | payer MEDICARE, SELFPAY | PROVIDERS: PCP Internal Medicine | DX: J01.10 Acute frontal sinusitis, unspecified (principal); R51.9 Headache, unspecified; H66.003 Acute suppurative otitis media without spontaneous rupture of ear drum, bilateral | CPT/HCPCS: 99212 ==

== ENCOUNTER 2025-09-13 13:41 | Outpatient (REF) | payer MEDICARE, SELFPAY ==
--- NOTE | ~2025-09-13 | US_ITS ---
EXAMINATION: BILATERAL CAROTID ULTRASOUND WITH DOPPLER HISTORY: I65.22 - Occlusion and stenosis of left carotid artery COMPARISON: Comparison is made with the prior examination dated 02/11/2019. TECHNIQUE: Real time and Color and Spectral doppler ultrasonography of the carotid and vertebral arteries was performed in multiple planes. FINDINGS: A small amount of plaque is seen in both internal carotid arteries. An occasional arrhythmia is noted. VERTEBRAL FLOW DIRECTION: Antegrade bilaterally. PEAK SYSTOLIC VELOCITIES (in cm/sec): RIGHT: CCA: Prox: 67.4 Dist: 58.8 ICA: Prox: 58.0 Mid: 66.8 Dist: 64.4 ICA/CCA Ratio: 0.90 ECA: 109 Peak ICA end diastolic velocity (EDV): 25.1 LEFT: CCA: Prox: 732 Dist: 72.7 ICA: Prox: 93.8 Mid: 98.8 Dist: 90.7 ICA/CCA Ratio: 1.30 ECA: 104 Peak ICA end diastolic velocity (EDV): 37.3 US/US carotid duplex BI IMPRESSION: 1. Findings consistent with 0-49% stenosis of the bilateral internal carotid arteries. 2. An arrhythmia was noted during the course of the study. EKG correlation is suggested. Electronically signed by: Boston Busby MD 09/13/2025 02:43 PM [facility]
== END 2025-09-13 13:42 | disposition home or self-care (01) ==
LOC: HO.US 13:41
PROVIDERS: PCP Internal Medicine; Visit Provider Internal Medicine Cardiovascular Disease
DX: I65.22 Occlusion and stenosis of left carotid artery (principal)
CPT/HCPCS: 93880

== ENCOUNTER → 2025-09-13 13:58 | Outpatient (BNV) | payer MEDICARE, SELFPAY | PROVIDERS: PCP Internal Medicine; Visit Provider Radiology Diagnostic Radiology | DX: I65.22 Occlusion and stenosis of left carotid artery (principal); I49.9 Cardiac arrhythmia, unspecified | CPT/HCPCS: 93880 ==

== ENCOUNTER 2025-11-10 10:18 | Outpatient (AMB) | payer MEDICARE, SELFPAY ==
--- OUTSIDE RECORDS SUMMARY | 2024-10-14 08:40 | XMS_ITS ---
Author Organization [facility] Address [address] [place] [phone] Care Team Providers Care Shingle Trimmer Name Role Phone Acosta URENA, Alysa Primary Care Provider Sean Mccoy Jr [phone] REASON FOR VISIT screening Encounters Encounter Location Date Provider [place] [facility] [place] [address] [place] [phone] 10/14/2024 Sean Loredo Jr Colon cancer screening Z12.11 and Personal history of colonic polyps Z86.0100 Assessments Encounter Date Diagnosis (ICD Code) Assessment Notes Treatment Notes Treatment Clinical Notes Section Notes 10/14/2024 Colon cancer screening (ICD-10 - Z12.11) 10/14/2024 Personal history of colonic polyps (ICD-10 - Z86.0100) Plan Of Treatment No Information Progress Notes * SAPNA AMATO ADOB: [birth year] (70 yo F)Acc No.[id number]:10/14/2024 COLON WITH MAC Patient: SAPNA SNYDER Provider: Alena Loredo MD :1955 A ge:69 Y S ex:Female Date:10/14/2024 Address:[address] [place], [place] [phone] Pcp:Alysa Shane MD Subjective: * Chief Complaints: * S creening Assessment: * Assessment: 1. C olon cancer screening - Z12.11 (Primary) 2 . P ersonal history of colonic polyps - Z86.0100 Plan: * Procedure Codes: G 0105 COLOREC CANCR SCR; COLNSCPY HI [id number] INTRVL 3+YRS PTS CLNSCP [id number] RCMND FLW-UP 10 YRS DOCD Billing Information: * Procedure Codes: G0105 COLOREC CANCR SCR; COLNSCPY HI RISK. 0529F INTRVL 3+YRS PTS CLNSCP DOCD. 0528F RCMND FLW-UP 10 YRS DOCD. * The named appointment provid er may or may not be the originator of this progress note, and it is not deemed complete until electronically signed by the appointment provider. Sign off status: Pending * Provider: Alena Loredo MD Date: 12/15/2023 Generated for Bill negro/Syeda/Kacey on: 11:23 AM EST
[2025-11-10 10:34] VITALS: BP 170/70; PULSE 71; TEMP 36.7; O2SAT 97; BMI 29.3
--- NOTE | 2025-11-10 10:34 | AM.OFFWIN_ITS ---
Intake Vital Signs 11/10/25 10:34 Height 5 ft 5 in Weight 176 lb BMI 29.3 BP 170/70 H Blood Pressure Location Lt brachial Position Sitting Pulse 71 Pulse Source Pulse Oximeter Temp 98.1 F Temp Source Oral Pulse Oximetry (%) 97 Oxygen Delivery Method Room Air Intake Visit Reasons: EP cough, light headed, both ears blocked Intake Note: Patient presents c/o cough, bilateral ear pressure, sinus congestion x3 weeks. Patient Tobacco Use Status: Former Tobacco user Allergies No Known Allergies (No Known Allergies*) Allergy (Verified 11/10/25 10:38) HPI HPI Comments History of Present Illness Details She presents to office with cold symptoms x 3 weeks She presents today because worsening ear blockage, sinus pressure./congestion and cough She has been taking NyQuil + fatigue. No change in body aches from baseline + chills with nigh sweats. Not taking te mp + Sinus pressure 4/10 worse in the morni ng with associated headache States dizzy when blowing nose too hard + cough with SOB but SOB is baseline fro m former smoking No phlegm PFSH Medical History Essential hypertension Postmenopausal syndrome Impaired fasting glucose Encounter for annual wellness visit (AWV) in Medicare patient Osteoporosis Hyperlipidemia Mild atherosclerosis of carotid artery Former smoker, stopped smoking in distant past Osteopenia (~2008) Pulmonary nodules Tubular adenoma of colon (~2004) Surgical History History of cataract surgery (~2018) History of endoscopy (~2018) History of colonoscopy (~2018) Family History Sister Substance use disorder Sister Substance use disorder Other Mental health disorder Social History Housing: House Alcohol intake: current Alcohol intake frequency: a few times a week Comment: mechanical fall Patient Tobacco Use Status: Former Tobacco user Years Smoked: 29 (onset 14, 2ppd x 29yrs, 50pyh, quit 1997) e-Cigarette/Vaping Use: Never Used Second Hand Smoke Exposure: No service: No Current occupational status: employed 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 needs: No Hearing needs: No Vision needs: No Review of Systems Const Reports chills, Reports fatigue, Reports fever(s) and Reports headache(s) ENT Reports dizziness (when blowing nose), Reports otalgia, Reports headache(s), Reports nasal congestion, Reports sinus pain and Denies sore throat Card Denies chest pain and Denies syncope Resp Denies change in phlegm color and Reports cough GI Denies vomiting Neuro Denies confusion, Reports dizziness (when blowing nose), Denies syncope, Reports headache(s) and Denies focal weakness Psych Denies confusion Endo Reports fatigue Physical Exam Exam Exam: General: Non-toxic, NAD. Speaking full sentences. Skin: Warm dry throughout Eye: EOMI HENT: Airway patent. Uvula midline. No pharyngeal erythema or edema. No PATENT SEARCHER. Bilateral canals clear. L TM + erythematous with slight bulge. R TM non- erythematous, non-bulging. No TM perforation or hemotympanum noted.No mastoid ttp + sinus ttp ethmoid and maxillary bilaterally. Respiratory: CTA bilaterally. No wheezes, rales or rhonchi Cardiac: RRR. No murmur MSK: Full ROM extremities. Neurology: Alert. No aphasia or facial droop. Gait without abnormality Psych: Good mood and affect Vital Signs: Last Vital Signs Temp 98.1 F 11/10/25 10:34 Pulse 71 11/10/25 10:34 BP 170/70 H 11/10/25 10:34 Pulse Ox 97 11/10/25 10:34 Oxygen Delivery Method Room Air 11/10/25 10:34 BMI result Body Mass Index 29.3 Const General: No confusion Orientation/consciousness: No confusion Neuro General: No confusion Assessment & Plan Assessment & Plan (1) Bacterial sinusitis: Code(s): J32.9 - Chronic sinusitis, unspecified; B96.89 - Other specified bacterial agents as the cause of diseases classified elsewhere Plan: Patient seen and evaluated. Lungs CTA Non-toxic appearing and in no respiratory distress. + bacterial sinusitis on exam Augmentin and nasal spray She is hypertensive but had 3 cups of coffee and states she has been on OTC meds F/U with PCP Patient gave verbal understanding and had no additional questions or concerns at time of discharge All questions answered Medications: New amoxicillin-pot clavulanate 875-125 mg 1 tab PO BID 20 tabs 0RF ipratropium bromide administer into each nostril 2 sprays intranasal BID-TID PRN 30 mL 0RF allergy symptoms Coding Level of Care Code Est Pt Level 3 (68888) Diagnoses Bacterial sinusitis J32.9; B96.89
--- OUTSIDE RECORDS SUMMARY | 2025-11-10 11:23 | XMS_ITS | Patient Health Record ---
Author Organization [facility] Address [address] [place] [address] Care Team Providers Care Retail Customer Service Specialist Name Role Phone Nirav Sanchez MD Primary Care Provider UnavailJavier Maloney Unavailable [phone] Reason For Referral No Information Plan Of Treatment Pending Test Test Name Order Date X ray : Foot, left 3V 07/02/2011 Insurance Providers Payer Name Payer Address Payer Phone Subscriber Number Group Number Insured Name Patient Relationship to Insured Coverage Start Date Coverage End Date [facility] All Others [address] [place] [address] [id number] Gabriella Pedroza Self - patient is the insured Medical (General) History Medical History History ICD Code mumps measles chicken pox
--- OUTSIDE RECORDS SUMMARY | 2025-11-10 11:23 | XMS_ITS | Patient Health Record ---
Author Organization [facility] Address [address] [place] [address] Care Team Providers Care Building Services Technician Name Role Phone Alysa Shane MD Primary Care Provider Sean Mccoy Jr Unavailable Allergies No Known Allergies Reason For Referral No Information Medications Medication SIG (Take, Route, Frequency, Duration) Notes Start Date End Date Status CoQ10 100 MG Capsule 1 capsule with a me al Orally Once a day; Duration: 30 day(s) Active MiraLax (colon prep) 17 GM/SCOOP Powder mixed with Gatorade or Crystal Light Orally begin at 5:00 p.m. the day before the procedure; Duration: 1 day 09/07/2024 Active Vitamin D 1000 UNIT Tablet 1 tablet Oral ly Once a day; Duration: 30 day(s) Active Aspir-81 81 MG Tablet Delayed Release 1 tablet Orally Once a day; Duration: 30 day(s) Active Atorvastatin Calcium 80 MG Tablet 1 tablet Orally Once a day; Duration: 30 day(s) Active Acetaminophen ER 650 MG Tablet Extended Release TAKE 1-2 TABLETS BY MOUTH EVERY 8 HOURS NEEDED FOR PAIN Oral; Duration: 15 Active Ezetimibe 10 MG Tablet 10 MG ORALLY TRAE Y Oral; Duration: 90 Active Meloxicam 15 MG Tablet Oral; Duration: 30 Active Lisinopril 5 MG Tablet Oral; Duration: 30 Active Immunizations Vaccine Route Administration Date Status Comme nts Influenza Unknown 10/22/2018 Administered Influenza Unknown 08/11/2024 Administered Pneumococcal Unknown 08/11/2024 Administered Social History Social History Drugs/Alcohol: Social Info Question Answer Notes Alcohol Screen Did you have a drink containing alcohol in the past year? Yes How often did you have a drink containing alcohol in the past year? 2 to 3 times a week (3 points) How many drinks did you have on a typical day when you were drinking in the past year? 3 or 4 drinks (1 point) How often did you have 6 or more drinks on one occasion in the past year? 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 Problems Problem Type SNOMED Code ICD Code Onset Dates Problem Status W/U Status Risk Notes Problem Colon cancer screening (921705466) Colon cancer screening (Z12.11) Active confirmed Problem Essential hypertension (58367113) Hypertension, unspecified type (I10) Active confirmed Problem Gastroesophageal reflux disease (492523689) Gastroesophageal reflux disease, unspecified whether esophagitis present (K21.9) Active confirmed Plan Of Treatment Pending Test Test Name Order Date CT COLON SCREENING NO CONTRAST 9 Future Test Test Name Order Date COLONOSCOPY 09/16/2013 UPPER GI ENDOSCOPY 02/18/2019 COLONOSCOPY 02/18/2019 COLONOSCOPY 09/07/2024 Insurance Providers Payer Name Payer Address Payer Phone Subscriber Number Group Number Insured Name Patient Relationship to Insured Coverage Start Date Coverage End Date MEDICARE OF [place] [address] [place] [address] [id number] SAPNA AMATO Self - patient is the insured [employer] ATTN CLAIMS [address] [place] [address] [id number] SAPNA AMATO Self - patient is the insured Medical (General) History Medical History History ICD Code Colonoscopy 09/29, tubular adenoma, five -year followup Hyperlipidemia Hypertension Gastroesophageal reflux disease, EGD , no BE or HP Surgical History Surgery Date(Month/Year) cyst removal cataract-lens implants
== END 2025-11-10 10:52 | disposition home or self-care (01) ==
PROVIDERS: PCP Internal Medicine; Visit Provider Physician Assistant
DX: J32.9 Chronic sinusitis, unspecified (principal); B96.89 Other specified bacterial agents as the cause of diseases classified elsewhere

== ENCOUNTER → 2025-11-10 10:18 | Outpatient (BNVA) | payer MEDICARE, SELFPAY | PROVIDERS: PCP Internal Medicine; Visit Provider Physician Assistant | DX: J32.9 Chronic sinusitis, unspecified (principal); B96.89 Other specified bacterial agents as the cause of diseases classified elsewhere; I10 Essential (primary) hypertension; Z87.891 Personal history of nicotine dependence | CPT/HCPCS: 99212 ==